=== PATIENT | female | born 1945 | race American Indian/Alaskan Native ===

== ENCOUNTER 2016-10-26 10:03 | Inpatient (IN) | payer MEDICARE ==
[2016-10-26 11:24] LABS: Basophils % (Auto) 0.5 % (0.0-1.8); Eosinophils % (Auto) 0.3 % (0.0-4.3); Hematocrit 36.7 % (30.3-42.9); Hemoglobin 11.5 gm/dl (10.1-14.3); Mean Corpuscular HGB Conc 31 % (30-34); Mean Corpuscular Hemoglobin 30 pg (28-32); Mean Corpuscular Volume 95 fl (79-97); Platelet Count 367 K/mm3 (140-440); Red Blood Count 3.85 M/mm3 (3.65-5.03); Red Cell Distribution Width 14.5 % (13.2-15.2); White Blood Count 9.3 K/mm3 (4.5-11.0)
[2016-10-26 11:32] LABS: Bacteria,Urine 4+ /HPF (Negative); Bilirubin,Urine SM (Negative); Blood,Urine SM (Negative); Ketones,Urine TR mg/dL (Negative); Leukocyte Esterase,Urine MOD (Negative); Mucus,Urine 3+ /HPF; Nitrite,Urine NEG (Negative)
[2016-10-26 11:33] LABS: INR 1.24 (0.87-1.13)
[2016-10-26 11:33] LABS: WBC,Urine > 182.0 /HPF (0.0-6.0)
[2016-10-26 11:39] LABS: Albumin 2.2 g/dL (3.9-5); Albumin/Globulin Ratio 0.3 %; Alkaline Phosphatase 64 units/L (35-129); Anion Gap 18 mmol/L; BUN/Creatinine Ratio 11.25; Blood Urea Nitrogen 9 mg/dL (7-17); Calcium 8.6 mg/dL (8.4-10.2); Carbon Dioxide 26 mmol/L (22-30); Chloride 94.1 mmol/L (98-107); Glucose 120 mg/dL (65-100); Potassium 3.6 mmol/L (3.6-5.0); Sodium 134 mmol/L (137-145); Total Protein 8.8 g/dL (6.3-8.2)
[2016-10-26 11:43] LABS: Alanine Aminotransferase < 5 units/L (7-56)
[2016-10-26] MEDS ORDERED: NACL 0.9% 500 ML 500 ML IV ONE (12:02)
[2016-10-26] MEDS ORDERED: ROCEPHIN/NS 1 GM/50 ML 1 GM/50 ML BAG IV ONE (14:39)
[2016-10-26] MEDS ORDERED: ZITHROMAX PO ONE (14:39)
--- NOTE | 2016-10-26 14:40 | Emergency Department Report ---
ED General Adult HPI - General Chief complaint: Weakness Stated complaint: LOW BLOOD PRESSURE Source: patient, family, EMS (ems notes not available at time of chart dictation), RN notes reviewed Mode of arrival: Stretcher Limitations: No Limitations - History of Present Illness Initial comments: This is a 71-year-old female. She is previously unknown to me. Her primary care doctor is Dr. Bang Robles. She reports a past medical history of hypertension and takes metoprolol. Patient is brought to the hospital by EMS. Her primary care doctor is Dr. Bang Robles. The patient presents today with a complaint of weakness, dizziness, lightheadedness, near syncope and hypotension. She reports her blood pressure was in the 80s in the field. She denies headache, neck pain, chest pain, abdominal pain, shortness of breath, irritated and obstructive urinary symptoms. She has no hematemesis or bright red blood per rectum. Her hypotension has resolved. -: Gradual Improves with: none Worsens with: none Associated Symptoms: loss of appetite, malaise, syncope, weakness. denies: confusion, chest pain - Related Data Home Medications Medication Instructions Recorded Confirmed Last Taken Metoprolol Xl [Metoprolol 12.5 mg PO BID 10/26/16 10/26/16 10/25/16 SUCCINATE ER TAB] Allergies Allergy/AdvReac Type Severity Reaction Status Date / Time No Known Allergies Allergy Verified 03/16/14 21:25 ED Review of Systems ROS: Stated complaint: LOW BLOOD PRESSURE Other details as noted in HPI Constitutional: malaise. denies: fever Eyes: denies: vision change ENT: denies: epistaxis Respiratory: denies: wheezing Cardiovascular: denies: chest pain Gastrointestinal: denies: abdominal pain Genitourinary: denies: dysuria Musculoskeletal: denies: back pain Skin: denies: lesions Neurological: weakness Psychiatric: denies: anxiety ED Past Medical Hx - Past Medical History Previous Medical History?: Yes Hx Hypertension: Yes (no meds) Hx Congestive Heart Failure: Yes - Surgical History Past Surgical History?: Yes Additional Surgical History: stomach surgery for weight loss in 1969 - Social History Smoking Status: Never Smoker Substance Use Type: None - Medications Home Medications: Home Medications Medication Instructions Recorded Confirmed Last Taken Type Metoprolol Xl [Metoprolol 12.5 mg PO BID 08/11/17 08/11/17 08/10/17 History SUCCINATE ER TAB] ED Physical Exam - General Limitations: No Limitations General appearance: alert, in no apparent distress - Head Head exam: Present: atraumatic, normocephalic - Eye Eye exam: Present: normal appearance, PERRL, EOMI. Absent: nystagmus - ENT ENT exam: Present: normal exam, normal orophraynx, mucous membranes moist, normal external ear exam - Neck Neck exam: Present: normal inspection, full ROM. Absent: tenderness, meningismus - Respiratory Respiratory exam: Present: normal lung sounds bilaterally, rhonchi. Absent: respiratory distress - Cardiovascular Cardiovascular Exam: Present: regular rate, normal rhythm, normal heart sounds. Absent: bradycardia, tachycardia, irregular rhythm, systolic murmur, diastolic murmur, rubs, gallop - GI/Abdominal GI/Abdominal exam: Present: soft, normal bowel sounds. Absent: distended, tenderness, guarding, rebound, rigid, pulsatile mass - Extremities Exam Extremities exam: Present: normal inspection, full ROM, normal capillary refill. Absent: tenderness, pedal edema, joint swelling, calf tenderness - Back Exam Back exam: Present: normal inspection, full ROM. Absent: tenderness, CVA tenderness (R), CVA tenderness (L), muscle spasm, paraspinal tenderness, vertebral tenderness - Neurological Exam Neurological exam: Present: alert, oriented X3, other (Extraocular movements intact. Tongue midline. No facial droop. Facial sensation intact to light touch in the V1, V2, V3 distribution bilaterally. 5 and 5 strength in 4 extremities.. Sensation is intact to light touch in 4 extremities.). Absent: motor sensory deficit - Psychiatric Psychiatric exam: Present: normal affect, normal mood - Skin Skin exam: Present: warm, dry, intact, normal color. Absent: rash ED Course Vital Signs 10/26/16 10/26/16 10/26/16 10:04 10:10 10:20 Temperature Pulse Rate 97 H 98 H 95 H Respiratory 15 27 H 17 Rate Blood Pressure 102/55 O2 Sat by Pulse 88 92 Oximetry 10/26/16 10/26/16 10/26/16 10:30 10:31 10:40 Temperature 99.1 F Pulse Rate 94 H 98 H 94 H Respiratory 18 12 12 Rate Blood Pressure 102/55 102/55 102/55 O2 Sat by Pulse 91 94 91 Oximetry 10/26/16 10/26/16 10/26/16 10:50 11:00 11:20 Temperature Pulse Rate 88 91 H 94 H Respiratory 12 11 L 24 Rate Blood Pressure 108/57 103/52 109/65 O2 Sat by Pulse 93 90 Oximetry 10/26/16 10/26/16 10/26/16 11:30 11:40 11:50 Temperature Pulse Rate 87 89 90 Respiratory 26 H 17 18 Rate Blood Pressure 100/53 100/53 107/72 O2 Sat by Pulse 91 89 90 Oximetry 10/26/16 10/26/16 10/26/16 12:00 12:06 12:10 Temperature Pulse Rate 94 H 92 H Respiratory 29 H 24 8 L Rate Blood Pressure 108/38 108/38 O2 Sat by Pulse 91 94 Oximetry 10/26/16 10/26/16 10/26/16 12:20 12:30 12:40 Temperature Pulse Rate 83 91 H 91 H Respiratory 14 26 H 25 H Rate Blood Pressure 105/56 111/58 111/58 O2 Sat by Pulse 93 91 91 Oximetry 10/26/16 10/26/16 10/26/16 12:50 13:00 13:10 Temperature Pulse Rate 91 H 91 H 87 Respiratory 24 21 30 H Rate Blood Pressure 115/56 102/62 102/62 O2 Sat by Pulse 92 92 Oximetry 10/26/16 10/26/16 10/26/16 13:20 13:30 13:40 Temperature Pulse Rate 84 83 85 Respiratory 25 H 19 24 Rate Blood Pressure 118/70 110/77 110/77 O2 Sat by Pulse 98 95 97 Oximetry 10/26/16 10/26/16 10/26/16 13:50 14:00 14:10 Temperature Pulse Rate 82 88 85 Respiratory 10 L 22 24 Rate Blood Pressure 110/72 104/54 104/54 O2 Sat by Pulse 98 95 97 Oximetry 10/26/16 10/26/16 10/26/16 14:20 14:30 14:40 Temperature Pulse Rate 83 84 80 Respiratory 22 21 12 Rate Blood Pressure 110/55 109/65 109/65 O2 Sat by Pulse 97 96 97 Oximetry 10/26/16 10/26/16 10/26/16 14:50 15:00 15:10 Temperature Pulse Rate 88 87 78 Respiratory 23 10 L 16 Rate Blood Pressure 103/61 111/64 111/64 O2 Sat by Pulse 98 96 95 Oximetry 0810/26/16 10/26/16 15:20 15:30 15:40 Temperature Pulse Rate 86 92 H 80 Respiratory 17 14 13 Rate Blood Pressure 119/63 117/54 117/54 O2 Sat by Pulse 96 95 97 Oximetry 10/26/16 10/26/16 10/26/16 15:50 16:00 16:10 Temperature Pulse Rate 84 75 79 Respiratory 12 17 12 Rate Blood Pressure 119/63 117/59 117/59 O2 Sat by Pulse 96 95 97 Oximetry 10/26/16 10/26/16 10/26/16 16:20 16:30 16:40 Temperature Pulse Rate 79 81 87 Respiratory 25 H 17 26 H Rate Blood Pressure 115/61 106/65 106/65 O2 Sat by Pulse 96 97 97 Oximetry 10/26/16 10/26/16 10/26/16 16:50 17:00 17:10 Temperature Pulse Rate 82 84 129 H Respiratory 25 H 23 26 H Rate Blood Pressure 109/59 108/61 108/61 O2 Sat by Pulse 98 97 Oximetry 10/26/16 10/26/16 10/26/16 17:20 17:30 17:40 Temperature Pulse Rate 90 90 89 Respiratory 14 24 26 H Rate Blood Pressure 102/57 108/57 108/57 O2 Sat by Pulse 97 97 Oximetry 10/26/16 10/26/16 10/26/16 17:50 18:00 18:10 Temperature Pulse Rate 78 76 78 Respiratory 24 19 26 H Rate Blood Pressure 110/60 95/56 95/56 O2 Sat by Pulse 98 96 97 Oximetry 10/26/16 10/26/16 10/26/16 18:20 18:30 18:40 Temperature Pulse Rate 70 87 86 Respiratory 21 25 H 25 H Rate Blood Pressure 112/61 116/64 105/62 O2 Sat by Pulse 97 96 Oximetry 10/26/16 10/26/16 10/26/16 18:50 19:00 19:10 Temperature Pulse Rate 86 85 77 Respiratory 13 30 H 20 Rate Blood Pressure 103/49 113/56 113/56 O2 Sat by Pulse 97 98 Oximetry 10/26/16 10/26/16 19:20 19:41 Temperature 98.3 F Pulse Rate 88 Respiratory 29 H 17 Rate Blood Pressure 107/55 O2 Sat by Pulse 98 Oximetry ED Medical Decision Making - Lab Data Result diagrams: 10/26/16 11:00 10/26/16 11:00 Vital Signs 10/26/16 10/26/16 10/26/16 10:04 10:10 10:20 Temperature Pulse Rate 97 H 98 H 95 H Respiratory 15 27 H 17 Rate Blood Pressure 102/55 O2 Sat by Pulse 88 92 Oximetry 10/26/16 10/26/16 10/26/16 10:30 10:31 10:40 Temperature 99.1 F Pulse Rate 94 H 98 H 94 H Respiratory 18 12 12 Rate Blood Pressure 102/55 102/55 102/55 O2 Sat by Pulse 91 94 91 Oximetry 10/26/16 10/26/16 10/26/16 10:50 11:00 11:20 Temperature Pulse Rate 88 91 H 94 H Respiratory 12 11 L 24 Rate Blood Pressure 108/57 103/52 109/65 O2 Sat by Pulse 93 90 Oximetry 10/26/16 10/26/16 10/26/16 11:30 11:40 11:50 Temperature Pulse Rate 87 89 90 Respiratory 26 H 17 18 Rate Blood Pressure 100/53 100/53 107/72 O2 Sat by Pulse 91 89 90 Oximetry 10/26/16 10/26/16 10/26/16 12:00 12:06 12:10 Temperature Pulse Rate 94 H 92 H Respiratory 29 H 24 8 L Rate Blood Pressure 108/38 108/38 O2 Sat by Pulse 91 94 Oximetry Lab Results 10/26/16 10/26/16 10/26/16 Range/Units 10:58 11:00 11:00 WBC 9.3 (4.5-11.0) K/mm3 RBC 3.85 (3.65-5.03) M/mm3 Hgb 11.5 (10.1-14.3) gm/dl Hct 36.7 (30.3-42.9) % MCV 95 (79-97) fl MCH 30 (28-32) pg MCHC 31 (30-34) % RDW 14.5 (13.2-15.2) % Plt Count 367 (140-440) K/mm3 Lymph % (Auto) 12.8 L (13.4-35.0) % Craig % (Auto) 10.4 H (0.0-7.3) % Eos % (Auto) 0.3 (0.0-4.3) % Baso % (Auto) 0.5 (0.0-1.8) % Lymph # 1.2 (1.2-5.4) K/mm3 Craig # 1.0 H (0.0-0.8) K/mm3 Eos # 0.0 (0.0-0.4) K/mm3 Baso # 0.0 (0.0-0.1) K/mm3 Seg Neutrophils % 76.0 H (40.0-70.0) % Seg Neutrophils # 7.1 (1.8-7.7) K/mm3 PT 15.5 H (12.2-14.9) Sec. INR 1.24 H (0.87-1.13) VBG pH (7.320-7.420) Sodium (137-145) mmol/L Potassium (3.6-5.0) mmol/L Chloride (98-107) mmol/L Carbon Dioxide (22-30) mmol/L Anion Gap mmol/L BUN (7-17) mg/dL Creatinine (0.7-1.2) mg/dL Estimated GFR ml/min BUN/Creatinine Ratio % Glucose (65-100) mg/dL Lactic Acid (0.7-2.0) mmol/L Calcium (8.4-10.2) mg/dL Total Bilirubin (0.1-1.2) mg/dL AST (5-40) units/L ALT (7-56) units/L Alkaline Phosphatase (35-129) units/L Total Protein (6.3-8.2) g/dL Albumin (3.9-5) g/dL Albumin/Globulin Ratio % Urine Color Mad[place] (Yellow) Urine Turbidity Cloudy (Clear) Urine pH 5.0 (5.0-7.0) Ur Specific Gilbert 1.021 (1.003-1.030) Urine Protein 100 mg/dl (Negative) mg/dL Urine Glucose (UA) Neg (Negative) mg/dL Urine Ketones Tr (Negative) mg/dL Urine Blood Sm (Negative) Urine Nitrite Neg (Negative) Urine Bilirubin Sm (Negative) Urine Ictotest Negative (Negative) Urine Urobilinogen 4.0 (<2.0) mg/dL Ur Leukocyte Esterase Mod (Negative) Urine WBC (Auto) > 182.0 H (0.0-6.0) /HPF Urine RBC (Auto) 15.0 (0.0-6.0) /HPF U Epithel Cells (Auto) 9.0 (0-13.0) /HPF Urine Bacteria (Auto) 4+ (Negative) /HPF Urine WBC Clumps 3+ /HPF Urine Mucus 3+ /HPF 10/26/16 10/26/16 10/26/16 Range/Units 11:00 11:00 11:00 WBC (4.5-11.0) K/mm3 RBC (3.65-5.03) M/mm3 Hgb (10.1-14.3) gm/dl Hct (30.3-42.9) % MCV (79-97) fl MCH (28-32) pg MCHC (30-34) % RDW (13.2-15.2) % Plt Count (140-440) K/mm3 Lymph % (Auto) (13.4-35.0) % Craig % (Auto) (0.0-7.3) % Eos % (Auto) (0.0-4.3) % Baso % (Auto) (0.0-1.8) % Lymph # (1.2-5.4) K/mm3 Craig # (0.0-0.8) K/mm3 Eos # (0.0-0.4) K/mm3 Baso # (0.0-0.1) K/mm3 Seg Neutrophils % (40.0-70.0) % Seg Neutrophils # (1.8-7.7) K/mm3 PT (12.2-14.9) Sec. INR (0.87-1.13) VBG pH 7.331 (7.320-7.420) Sodium 134 L (137-145) mmol/L Potassium 3.6 (3.6-5.0) mmol/L Chloride 94.1 L (98-107) mmol/L Carbon Dioxide 26 (22-30) mmol/L Anion Gap 18 mmol/L BUN 9 (7-17) mg/dL Creatinine 0.8 (0.7-1.2) mg/dL Estimated GFR > 60 ml/min BUN/Creatinine Ratio 11.25 % Glucose 120 H (65-100) mg/dL Lactic Acid 2.20 H* (0.7-2.0) mmol/L Calcium 8.6 (8.4-10.2) mg/dL Total Bilirubin 0.90 (0.1-1.2) mg/dL AST 18 (5-40) units/L ALT < 5 L (7-56) units/L Alkaline Phosphatase 64 (35-129) units/L Total Protein 8.8 H (6.3-8.2) g/dL Albumin 2.2 L (3.9-5) g/dL Albumin/Globulin Ratio 0.3 % Urine Color (Yellow) Urine Turbidity (Clear) Urine pH (5.0-7.0) Ur Specific Gilbert (1.003-1.030) Urine Protein (Negative) mg/dL Urine Glucose (UA) (Negative) mg/dL Urine Ketones (Negative) mg/dL Urine Blood (Negative) Urine Nitrite (Negative) Urine Bilirubin (Negative) Urine Ictotest (Negative) Urine Urobilinogen (<2.0) mg/dL Ur Leukocyte Esterase (Negative) Urine WBC (Auto) (0.0-6.0) /HPF Urine RBC (Auto) (0.0-6.0) /HPF U Epithel Cells (Auto) (0-13.0) /HPF Urine Bacteria (Auto) (Negative) /HPF Urine WBC Clumps /HPF Urine Mucus /HPF 10/26/16 Range/Units 13:37 WBC (4.5-11.0) K/mm3 RBC (3.65-5.03) M/mm3 Hgb (10.1-14.3) gm/dl Hct (30.3-42.9) % MCV (79-97) fl MCH (28-32) pg MCHC (30-34) % RDW (13.2-15.2) % Plt Count (140-440) K/mm3 Lymph % (Auto) (13.4-35.0) % Craig % (Auto) (0.0-7.3) % Eos % (Auto) (0.0-4.3) % Baso % (Auto) (0.0-1.8) % Lymph # (1.2-5.4) K/mm3 Craig # (0.0-0.8) K/mm3 Eos # (0.0-0.4) K/mm3 Baso # (0.0-0.1) K/mm3 Seg Neutrophils % (40.0-70.0) % Seg Neutrophils # (1.8-7.7) K/mm3 PT (12.2-14.9) Sec. INR (0.87-1.13) VBG pH (7.320-7.420) Sodium (137-145) mmol/L Potassium (3.6-5.0) mmol/L Chloride (98-107) mmol/L Carbon Dioxide (22-30) mmol/L Anion Gap mmol/L BUN (7-17) mg/dL Creatinine (0.7-1.2) mg/dL Estimated GFR ml/min BUN/Creatinine Ratio % Glucose (65-100) mg/dL Lactic Acid 1.00 (0.7-2.0) mmol/L Calcium (8.4-10.2) mg/dL Total Bilirubin (0.1-1.2) mg/dL AST (5-40) units/L ALT (7-56) units/L Alkaline Phosphatase (35-129) units/L Total Protein (6.3-8.2) g/dL Albumin (3.9-5) g/dL Albumin/Globulin Ratio % Urine Color (Yellow) Urine Turbidity (Clear) Urine pH (5.0-7.0) Ur Specific Gilbert (1.003-1.030) Urine Protein (Negative) mg/dL Urine Glucose (UA) (Negative) mg/dL Urine Ketones (Negative) mg/dL Urine Blood (Negative) Urine Nitrite (Negative) Urine Bilirubin (Negative) Urine Ictotest (Negative) Urine Urobilinogen (<2.0) mg/dL Ur Leukocyte Esterase (Negative) Urine WBC (Auto) (0.0-6.0) /HPF Urine RBC (Auto) (0.0-6.0) /HPF U Epithel Cells (Auto) (0-13.0) /HPF Urine Bacteria (Auto) (Negative) /HPF Urine WBC Clumps /HPF Urine Mucus /HPF - EKG Data -: EKG Interpreted by Me - EKG Data 10/26/16 16:27 10/26/16 16:28 normal sinus, 93 beats minute, normal axis, QTC 460 ms, abnormal EKG, not morphologically consistent with STEMI - Radiology Data Radiology results: report reviewed, image reviewed interpreted by me: x-ray of the chest demonstrates right upper lobe infiltrate versus mass. Otherwise, no acute disease. No pneumothorax. - Medical Decision Making Differential diagnosis: Pneumonia, urinary tract infection, orthostasis, anemia , dehydration Assessment and plan: 71-year-old female with resolved hypotension, generalized weakness, bowel urinary tract infection. X-ray of the chest suggest pneumonia versus nonspecific masses. Currently, the CT angiogram machine is not working. However, given UTI, symptoms of hypotension, dizziness and near syncope, patient to be admitted to the hospital for IV antibiotics, IV fluids, further observation, evaluation and management. Case is presents to the Hospital physician, Dr. García, who accepts the patient to his service. Patient is given IV fluids, empiric antibiotics, blood cultures drawn. Critical care attestation.: If time is entered above; I have spent that time in minutes in the direct care of this critically ill patient, excluding procedure time. ED Disposition Clinical Impression: History of hypotension, UTI (urinary tract infection), Near syncope Disposition: OP ADMIT IP TO THIS HOSP Is pt being admited?: Yes Condition: Good
--- NOTE | 2016-10-26 15:30 | XRay Report ---
Portable chest: Fever, respiratory difficulty. There is an infiltrate/mass in the right upper lobe and there is widening of the mediastinum in the right paratracheal region. The hilum is obscured. The lower right lung is clear in the left lung is clear. The heart is normal in size and is no vascular congestion. Impression: Right hilar opacity that is more likely to represent masses and infiltrate. Recommendation: CT chest.
[2016-10-26] MEDS ORDERED: ZOFRAN IV PRN (18:51)
[2016-10-26] MEDS ORDERED: MILK OF MAGNESIA PO PRN (18:51)
[2016-10-26] MEDS ORDERED: DULCOLAX PR PRN (18:51)
--- NOTE | 2016-10-26 18:51 | History and Physical Report ---
History of Present Illness Date of examination: 10/26/16 Date of admission: 10/26/16 Chief complaint: History of Present Illness This is a 71-year-old female who reports a past medical history of hypertension and takes metoprolol presents today with a complaint of weakness, dizziness, lightheadedness, near syncope and hypotension. She reports her blood pressure was in the 80s in the field. She denies headache, neck pain, chest pain, abdominal pain, shortness of breath, irritated and obstructive urinary symptoms. She has no hematemesis or bright red blood per rectum. Her hypotension has resolved. -: Gradual Improves with: none Worsens with: none Associated Symptoms: loss of appetite, malaise, syncope, weakness. denies: confusion, chest - Past Medical History Previous Medical History?: Yes Hx Hypertension: Yes (no meds) Hx Congestive Heart Failure: Yes - Surgical History Past Surgical History?: Yes Additional Surgical History: stomach surgery for weight loss in 1969 - Social History Smoking Status: Never Smoker Substance Use Type: None Fam Hx Htn - Medications Home Medications: Home Medications Medication Instructions Recorded Confirmed Last Taken Type Metoprolol Xl [Metoprolol 12.5 mg PO BID 10/26/16 10/26/16 10/25/16 History SUCCINATE ER TAB] - Related Data Home Medications Medication Instructions Recorded Confirmed Last Taken Metoprolol Xl [Metoprolol 12.5 mg PO BID 10/26/16 10/26/16 10/25/16 SUCCINATE ER TAB] Allergies Allergy/AdvReac Type Severity Reaction Status Date / Time No Known Allergies Allergy Verified 03/16/14 21:25 ROS: Stated complaint: LOW BLOOD PRESSURE Other details as noted in HPI Constitutional: malaise. denies: fever Eyes: denies: vision change ENT: denies: epistaxis Respiratory: denies: wheezing Cardiovascular: denies: chest pain Gastrointestinal: denies: abdominal pain Genitourinary: denies: dysuria Musculoskeletal: denies: back pain Skin: denies: lesions Neurological: weakness Psychiatric: denies: anxiety History of present illness: - History of Present Illness Initial comments: This is a 71-year-old female. She is previously unknown to me. Her primary care doctor is Dr. Bang Robles. She reports a past medical history of hypertension and takes metoprolol. Patient is brought to the hospital by EMS. Her primary care doctor is Dr. Bang Robles. The patient presents today with a complaint of - History of Present Illness Initial comments: This is a 71-year-old female. She is previously unknown to me. Her primary care doctor is Dr. Bang Robles. She reports a past medical history of hypertension and takes metoprolol. Patient is brought to the hospital by EMS. Her primary care doctor is Dr. Bang Robles. The patient presents today with a complaint of weakness, dizziness, lightheadedness, near syncope and hypotension. She reports her blood pressure was in the 80s in the field. She denies headache, neck pain, chest pain, abdominal pain, shortness of breath, irritated and obstructive urinary symptoms. She has no hematemesis or bright red blood per rectum. Her hypotension has resolved. -: Gradual Improves with: none Worsens with: none Associated Symptoms: loss of appetite, malaise, syncope, weakness. denies: confusion, chest pain - Related Data Home Medications Medication Instructions Recorded Confirmed Last Taken Metoprolol Xl [Metoprolol 12.5 mg PO BID 10/26/16 10/26/16 10/25/16 SUCCINATE ER TAB] Allergies Allergy/AdvReac Type Severity Reaction Status Date / Time No Known Allergies Allergy Verified 03/16/14 21:25 ED Review of Systems ROS: Stated complaint: LOW BLOOD PRESSURE Other details as noted in HPI Constitutional: malaise. denies: fever Eyes: denies: vision change ENT: denies: epistaxis Respiratory: denies: wheezing Cardiovascular: denies: chest pain Gastrointestinal: denies: abdominal pain Genitourinary: denies: dysuria Musculoskeletal: denies: back pain Skin: denies: lesions Neurological: weakness Psychiatric: denies: anxiety ED Past Medical Hx - Past Medical History Previous Medical History?: Yes Hx Hypertension: Yes (no meds) Hx Congestive Heart Failure: Yes - Surgical History Past Surgical History?: Yes Additional Surgical History: stomach surgery for weight loss in 1969 - Social History Smoking Status: Never Smoker Substance Use Type: None - Medications Home Medications: Home Medications Medication Instructions Recorded Confirmed Last Taken Type Metoprolol Xl [Metoprolol 12.5 mg PO BID 10/26/16 10/26/16 10/25/16 History SUCCINATE ER TAB] abdominal pain, shortness of breath, irritated and obstructive urinary symptoms. She has no hematemesis or bright red blood per rectum. Her hypotension has resolved. -: Gradual Improves with: none Worsens with: none Associated Symptoms: loss of appetite, malaise, syncope, weakness. denies: confusion, chest pain - Related Data Home Medications Medication Instructions Recorded Confirmed Last Taken Metoprolol Xl [Metoprolol 12.5 mg PO BID 10/26/16 10/26/16 10/25/16 SUCCINATE ER TAB] Allergies Allergy/AdvReac Type Severity Reaction Status Date / Time No Known Allergies Allergy Verified 03/16/14 21:25 ED Review of Systems ROS: Stated complaint: LOW BLOOD PRESSURE Other details as noted in HPI Constitutional: malaise. denies: fever Eyes: denies: vision change ENT: denies: epistaxis Respiratory: denies: wheezing Cardiovascular: denies: chest pain Gastrointestinal: denies: abdominal pain Genitourinary: denies: dysuria Musculoskeletal: denies: back pain Skin: denies: lesions Neurological: weakness Psychiatric: denies: anxiety ED Past Medical Hx - Past Medical History Previous Medical History?: Yes Hx Hypertension: Yes (no meds) Hx Congestive Heart Failure: Yes - Surgical History Past Surgical History?: Yes Additional Surgical History: stomach surgery for weight loss in 1969 - Social History Smoking Status: Never Smoker Substance Use Type: None - Medications Home Medications: Home Medications Medication Instructions Recorded Confirmed Last Taken Type Metoprolol Xl [Metoprolol 12.5 mg PO BID 10/26/16 10/26/16 10/25/16 History SUCCINATE ER TAB] Medications and Allergies Allergies Allergy/AdvReac Type Severity Reaction Status Date / Time No Known Allergies Allergy Verified 03/16/14 21:25 Home Medications Medication Instructions Recorded Confirmed Last Taken Type Metoprolol Xl [Metoprolol 12.5 mg PO BID 10/26/16 10/26/16 10/25/16 History SUCCINATE ER TAB] Exam - Physical Exam Narrative exam: In no distress - Constitutional Vitals: Temp Pulse Resp BP Pulse Ox 99.1 F 87 25 H 116/64 97 10/26/16 10:31 10/26/16 18:30 10/26/16 18:30 10/26/16 18:30 10/26/16 18:20 General appearance: Present: no acute distress, well-nourished - EENT Eyes: Present: PERRL ENT: hearing intact, clear oral mucosa - Neck Neck: Present: supple, normal ROM - Respiratory Respiratory effort: normal Respiratory: bilateral: CTA - Cardiovascular Heart rate: 76 Rhythm: regular Heart Sounds: Present: S1 & S2. Absent: rub, click - Extremities Extremities: no ischemia, pulses intact, pulses symmetrical, No edema Peripheral Pulses: within normal limits - Abdominal General gastrointestinal: Present: soft, non-tender, non-distended, normal bowel sounds Female genitourinary: Present: normal - Rectal Rectal Exam: deferred - Integumentary Integumentary: Present: clear, warm, dry - Musculoskeletal Musculoskeletal: gait normal, strength equal bilaterally - Psychiatric Psychiatric: appropriate mood/affect, intact judgment & insight - Neurologic Neurologic: CNII-XII intact, moves all extremities - Allied Health Allied health notes reviewed: nursing, case management Results - Labs CBC & Chem 7: 10/27/16 04:33 10/27/16 04:33 Labs: Laboratory Last Values WBC 9.3 K/mm3 (4.5-11.0) 10/26/16 11:00 RBC 3.85 M/mm3 (3.65-5.03) 10/26/16 11:00 Hgb 11.5 gm/dl (10.1-14.3) 10/26/16 11:00 Hct 36.7 % (30.3-42.9) 10/26/16 11:00 MCV 95 fl (79-97) 10/26/16 11:00 MCH 30 pg (28-32) 10/26/16 11:00 MCHC 31 % (30-34) 10/26/16 11:00 RDW 14.5 % (13.2-15.2) 10/26/16 11:00 Plt Count 367 K/mm3 (140-440) 10/26/16 11:00 Lymph % (Auto) 12.8 % (13.4-35.0) L 10/26/16 11:00 [place] % (Auto) 10.4 % (0.0-7.3) H 10/26/16 11:00 Eos % (Auto) 0.3 % (0.0-4.3) 10/26/16 11:00 Baso % (Auto) 0.5 % (0.0-1.8) 10/26/16 11:00 Lymph # 1.2 K/mm3 (1.2-5.4) 10/26/16 11:00 [place] # 1.0 K/mm3 (0.0-0.8) H 10/26/16 11:00 Eos # 0.0 K/mm3 (0.0-0.4) 10/26/16 11:00 Baso # 0.0 K/mm3 (0.0-0.1) 10/26/16 11:00 Seg Neutrophils % 76.0 % (40.0-70.0) H 10/26/16 11:00 Seg Neutrophils # 7.1 K/mm3 (1.8-7.7) 10/26/16 11:00 PT 15.5 Sec. (12.2-14.9) H 10/26/16 11:00 INR 1.24 (0.87-1.13) H 10/26/16 11:00 VBG pH 7.331 (7.320-7.420) 10/26/16 11:00 Sodium 134 mmol/L (137-145) L 10/26/16 11:00 Potassium 3.6 mmol/L (3.6-5.0) 10/26/16 11:00 Chloride 94.1 mmol/L (98-107) L 10/26/16 11:00 Carbon Dioxide 26 mmol/L (22-30) 10/26/16 11:00 Anion Gap 18 mmol/L 10/26/16 11:00 BUN 9 mg/dL (7-17) 10/26/16 11:00 Creatinine 0.8 mg/dL (0.7-1.2) 10/26/16 11:00 Estimated GFR > 60 ml/min 10/26/16 11:00 BUN/Creatinine Ratio 11.25 % 10/26/16 11:00 Glucose 120 mg/dL (65-100) H 10/26/16 11:00 Lactic Acid 1.00 mmol/L (0.7-2.0) 10/26/16 13:37 Calcium 8.6 mg/dL (8.4-10.2) 10/26/16 11:00 Total Bilirubin 0.90 mg/dL (0.1-1.2) 10/26/16 11:00 AST 18 units/L (5-40) 10/26/16 11:00 ALT < 5 units/L (7-56) L 10/26/16 11:00 Alkaline Phosphatase 64 units/L (35-129) 10/26/16 11:00 Total Protein 8.8 g/dL (6.3-8.2) H 10/26/16 11:00 Albumin 2.2 g/dL (3.9-5) L 10/26/16 11:00 Albumin/Globulin Ratio 0.3 % 10/26/16 11:00 Urine Color [place] (Yellow) 10/26/16 10:58 Urine Turbidity Cloudy (Clear) 10/26/16 10:58 Urine pH 5.0 (5.0-7.0) 10/26/16 10:58 Ur Specific [place] 1.021 (1.003-1.030) 10/26/16 10:58 Urine Protein 100 mg/dl mg/dL (Negative) 10/26/16 10:58 Urine Glucose (UA) Neg mg/dL (Negative) 10/26/16 10:58 Urine Ketones Tr mg/dL (Negative) 10/26/16 10:58 Urine Blood Sm (Negative) 10/26/16 10:58 Urine Nitrite Neg (Negative) 10/26/16 10:58 Urine Bilirubin Sm (Negative) 10/26/16 10:58 Urine Ictotest Negative (Negative) 10/26/16 10:58 Urine Urobilinogen 4.0 mg/dL (<2.0) 10/26/16 10:58 Ur Leukocyte Esterase Mod (Negative) 10/26/16 10:58 Urine WBC (Auto) > 182.0 /HPF (0.0-6.0) H 10/26/16 10:58 Urine RBC (Auto) 15.0 /HPF (0.0-6.0) 10/26/16 10:58 U Epithel Cells (Auto) 9.0 /HPF (0-13.0) 10/26/16 10:58 Urine Bacteria (Auto) 4+ /HPF (Negative) 10/26/16 10:58 Urine WBC Clumps 3+ /HPF 10/26/16 10:58 Urine Mucus 3+ /HPF 10/26/16 10:58 - Imaging and Cardiology EKG: report reviewed Chest x-ray: report reviewed (Rt Hilar opacity-CT chest to r/o mass) Assessment and Plan Advance Directives: Yes (FC) Plan of care discussed with patient/family: Yes - Patient Problems (1) Pneumonia Current Visit: Yes Status: Acute Qualifiers: Pneumonia type: due to unspecified organism Aspiration pneumonia type: A Laterality: L Lung location: middle lobe of lung Qualified Code(s): J18.1 - Lobar pneumonia, unspecified organism Plan to address problem: IV Rocephin and Zithromax CT chest ordered to r/o Rt Hilar mass (2) Hypotension Current Visit: Yes Status: Acute Qualifiers: Hypotension type: unspecified hypotension type Trimester: T Qualified Code(s): I95.9 - Hypotension, unspecified Plan to address problem: Resolved IV fluids (3) HTN (hypertension) Current Visit: Yes Status: Acute Qualifiers: Hypertension type: H (4) HTN (hypertension) Current Visit: Yes Status: Chronic Qualifiers: Hypertension type: essential hypertension Qualified Code(s): I10 - Essential (primary) hypertension Plan to address problem: Hold metoprolol for now (5) UTI (urinary tract infection) Current Visit: Yes Status: Acute Qualifiers: Urinary tract infection type: acute cystitis Hematuria presence: without hematuria Indwelling urinary catheter type: I Encounter type: E Qualified Code(s): N30.00 - Acute cystitis without hematuria Plan to address problem: Patient on Rocephin for PNA which should cover the UTI.Check cultures for sensitivity (6) DVT prophylaxis Current Visit: Yes Status: Acute Plan to address problem: On Lovenox
[2016-10-26] MEDS ORDERED: PERCOCET 5/325 PO PRN (18:52)
[2016-10-26] MEDS ORDERED: DILAUDID IV PRN (18:52)
[2016-10-26] MEDS ORDERED: D5NS 1,000 ML IV SCH (19:00)
[2016-10-26] MEDS ORDERED: PEPCID IV SCH (22:00)
[2016-10-26] MEDS: LOVENOX SUB-Q SCH (23:00)
[2016-10-26] MEDS: TOPROL XL PO SCH (23:00)
[2016-10-27] MEDS: TYLENOL PO PRN (03:23)
[2016-10-27 05:52] LABS: Basophils % (Auto) 0.4 % (0.0-1.8); Eosinophils % (Auto) 0.6 % (0.0-4.3); Hematocrit 30.5 % (30.3-42.9); Hemoglobin 10.3 gm/dl (10.1-14.3); Mean Corpuscular HGB Conc 34 % (30-34); Mean Corpuscular Hemoglobin 31 pg (28-32); Mean Corpuscular Volume 92 fl (79-97); Platelet Count 334 K/mm3 (140-440); Red Blood Count 3.32 M/mm3 (3.65-5.03); Red Cell Distribution Width 14.5 % (13.2-15.2)
[2016-10-27 06:12] LABS: Albumin 2.2 g/dL (3.9-5); Alkaline Phosphatase 53 units/L (35-129); Potassium 3.3 mmol/L (3.6-5.0); Sodium 139 mmol/L (137-145)
[2016-10-27 06:15] LABS: Alanine Aminotransferase < 5 units/L (7-56)
[2016-10-27 06:26] LABS: Albumin/Globulin Ratio 0.4 %; Anion Gap 14 mmol/L; BUN/Creatinine Ratio 14.28; Blood Urea Nitrogen 10 mg/dL (7-17); Calcium 8.1 mg/dL (8.4-10.2); Carbon Dioxide 29 mmol/L (22-30); Glucose 106 mg/dL (65-100); Total Protein 7.8 g/dL (6.3-8.2)
--- NOTE | 2016-10-27 10:11 | Progress Note ---
Assessment and Plan Assessment and plan: --Hypokalemia Replenish per protocol and monitor levels --Community-acquired pneumonia, oxygen titrated to O2 sats more than 90% Rocephin and Zithromax, follow cultures --Urinary tract infection on UA Continue Rocephin, follow urine cultures, IV fluids --Hypertension; well controlled Continue current antihypertensives and when necessary medications --Moderate to severe protein calorie malnutrition; nutrition supplements, supportive care --Full CODE STATUS --DVT prophylaxis Lovenox We'll closely monitor the patient and adjust management as needed -- History Interval history: Patient seen and evaluated medical records reviewed No new events reported by nursing staff Anatomy: Oriented 3 not in acute distress Hospitalist Physical - Constitutional Vitals: Temp Pulse Resp BP Pulse Ox 98.3 F 75 18 109/56 98 10/26/16 19:41 10/26/16 23:00 10/26/16 22:45 10/26/16 23:00 10/26/16 20:20 General appearance: Present: no acute distress, well-nourished - EENT Eyes: Present: PERRL, EOM intact - Neck Neck: Present: supple, normal ROM - Respiratory Respiratory effort: normal Respiratory: bilateral: diminished, negative: rales, rhonchi, wheezing - Cardiovascular Rhythm: regular Heart Sounds: Present: S1 & S2 - Extremities Extremities: no ischemia, No edema - Abdominal General gastrointestinal: soft, non-tender, non-distended, normal bowel sounds - Integumentary Integumentary: Present: clear, warm - Psychiatric Psychiatric: appropriate mood/affect, cooperative - Neurologic Neurologic: CNII-XII intact Results - Labs CBC & Chem 7: 10/27/16 04:33 10/27/16 04:33 Labs: Laboratory Last Values WBC 8.0 K/mm3 (4.5-11.0) 10/27/16 04:33 RBC 3.32 M/mm3 (3.65-5.03) L 10/27/16 04:33 Hgb 10.3 gm/dl (10.1-14.3) 10/27/16 04:33 Hct 30.5 % (30.3-42.9) D 10/27/16 04:33 MCV 92 fl (79-97) 10/27/16 04:33 MCH 31 pg (28-32) 10/27/16 04:33 MCHC 34 % (30-34) 10/27/16 04:33 RDW 14.5 % (13.2-15.2) 10/27/16 04:33 Plt Count 334 K/mm3 (140-440) 10/27/16 04:33 Lymph % (Auto) 19.3 % (13.4-35.0) 10/27/16 04:33 [place] % (Auto) 12.4 % (0.0-7.3) H 10/27/16 04:33 Eos % (Auto) 0.6 % (0.0-4.3) 10/27/16 04:33 Baso % (Auto) 0.4 % (0.0-1.8) 10/27/16 04:33 Lymph # 1.5 K/mm3 (1.2-5.4) 10/27/16 04:33 [place] # 1.0 K/mm3 (0.0-0.8) H 10/27/16 04:33 Eos # 0.0 K/mm3 (0.0-0.4) 10/27/16 04:33 Baso # 0.0 K/mm3 (0.0-0.1) 10/27/16 04:33 Seg Neutrophils % 67.3 % (40.0-70.0) 10/27/16 04:33 Seg Neutrophils # 5.4 K/mm3 (1.8-7.7) 10/27/16 04:33 PT 15.5 Sec. (12.2-14.9) H 10/26/16 11:00 INR 1.24 (0.87-1.13) H 10/26/16 11:00 VBG pH 7.331 (7.320-7.420) 10/26/16 11:00 Sodium 139 mmol/L (137-145) 10/27/16 04:33 Potassium 3.3 mmol/L (3.6-5.0) L 10/27/16 04:33 Chloride 99.0 mmol/L (98-107) 10/27/16 04:33 Carbon Dioxide 29 mmol/L (22-30) 10/27/16 04:33 Anion Gap 14 mmol/L 10/27/16 04:33 BUN 10 mg/dL (7-17) 10/27/16 04:33 Creatinine 0.7 mg/dL (0.7-1.2) 10/27/16 04:33 Estimated GFR > 60 ml/min 10/27/16 04:33 BUN/Creatinine Ratio 14.28 % 10/27/16 04:33 Glucose 106 mg/dL (65-100) H 10/27/16 04:33 Lactic Acid 1.00 mmol/L (0.7-2.0) 10/26/16 13:37 Calcium 8.1 mg/dL (8.4-10.2) L 10/27/16 04:33 Total Bilirubin 0.70 mg/dL (0.1-1.2) 10/27/16 04:33 AST 15 units/L (5-40) 10/27/16 04:33 ALT < 5 units/L (7-56) L 10/27/16 04:33 Alkaline Phosphatase 53 units/L (35-129) 10/27/16 04:33 Total Protein 7.8 g/dL (6.3-8.2) 10/27/16 04:33 Albumin 2.2 g/dL (3.9-5) L 10/27/16 04:33 Albumin/Globulin Ratio 0.4 % 10/27/16 04:33 Urine Color [place] (Yellow) 10/26/16 10:58 Urine Turbidity Cloudy (Clear) 10/26/16 10:58 Urine pH 5.0 (5.0-7.0) 10/26/16 10:58 Ur Specific [place] 1.021 (1.003-1.030) 10/26/16 10:58 Urine Protein 100 mg/dl mg/dL (Negative) 10/26/16 10:58 Urine Glucose (UA) Neg mg/dL (Negative) 10/26/16 10:58 Urine Ketones Tr mg/dL (Negative) 10/26/16 10:58 Urine Blood Sm (Negative) 10/26/16 10:58 Urine Nitrite Neg (Negative) 10/26/16 10:58 Urine Bilirubin Sm (Negative) 10/26/16 10:58 Urine Ictotest Negative (Negative) 10/26/16 10:58 Urine Urobilinogen 4.0 mg/dL (<2.0) 10/26/16 10:58 Ur Leukocyte Esterase Mod (Negative) 10/26/16 10:58 Urine WBC (Auto) > 182.0 /HPF (0.0-6.0) H 10/26/16 10:58 Urine RBC (Auto) 15.0 /HPF (0.0-6.0) 10/26/16 10:58 U Epithel Cells (Auto) 9.0 /HPF (0-13.0) 10/26/16 10:58 Urine Bacteria (Auto) 4+ /HPF (Negative) 10/26/16 10:58 Urine WBC Clumps 3+ /HPF 10/26/16 10:58 Urine Mucus 3+ /HPF 10/26/16 10:58
[2016-10-27] MEDS ORDERED: K-DUR PO ONE (11:00)
[2016-10-27] MEDS: TOPROL XL PO SCH ×2 (11:23→11:31)
[2016-10-27] MEDS: PEPCID PO SCH ×2 (11:58→22:56)
[2016-10-27] MEDS ORDERED: ZITHROMAX 500 MG in NACL 0.9% 250ML 250 ML IV SCH (16:00)
[2016-10-27] MEDS: ROCEPHIN/NS 2 GM/100 ML 2 GM/100 ML BAG IV SCH (18:10)
[2016-10-27] MEDS: LOVENOX SUB-Q SCH (22:37)
--- NOTE | 2016-10-28 09:49 | Progress Note ---
Assessment and Plan Assessment and plan: --Gram-negative urinary tract infection Continue current antibiotics, follow culture sensitivities and adjust. Supportive care with IV fluids --Hypokalemia; replace per protocol ,closely monitor electrolytes --Community-acquired pneumonia, oxygen titrate O2 sats more than 90% Rocephin and Zithromax, follow cultures --Hypertension; well controlled Continue current antihypertensives and when necessary medications --Moderate to severe protein calorie malnutrition; nutrition supplements, supportive care --Full CODE STATUS --DVT prophylaxis Lovenox Out of bed to chair, ambulate as tolerated Possible discharge tomorrow if sensitivities are available and if patient is stable -- History Interval history: Patient seen and evaluated medical records reviewed Patient feels slightly better and wants to go home Alert awake and oriented 3 not in acute distress Vital signs reviewed Urine cultures are positive for gram-negative rods Hospitalist Physical - Constitutional Vitals: Temp Pulse Resp BP Pulse Ox 98.8 F 76 20 118/62 96 10/27/16 23:47 10/27/16 23:47 10/27/16 23:47 10/27/16 23:47 10/27/16 23:47 General appearance: Present: no acute distress, well-nourished - EENT Eyes: Present: PERRL, EOM intact - Neck Neck: Present: supple, normal ROM - Respiratory Respiratory effort: normal Respiratory: bilateral: diminished, negative: rales, rhonchi, wheezing - Cardiovascular Rhythm: regular Heart Sounds: Present: S1 & S2 - Extremities Extremities: no ischemia, No edema Peripheral Pulses: within normal limits - Abdominal General gastrointestinal: soft, non-tender, non-distended, normal bowel sounds - Integumentary Integumentary: Present: clear, warm - Psychiatric Psychiatric: appropriate mood/affect, cooperative - Neurologic Neurologic: CNII-XII intact, moves all extremities Results - Labs CBC & Chem 7: 10/27/16 04:33 10/27/16 04:33 Labs: Laboratory Last Values WBC 8.0 K/mm3 (4.5-11.0) 10/27/16 04:33 RBC 3.32 M/mm3 (3.65-5.03) L 10/27/16 04:33 Hgb 10.3 gm/dl (10.1-14.3) 10/27/16 04:33 Hct 30.5 % (30.3-42.9) D 10/27/16 04:33 MCV 92 fl (79-97) 10/27/16 04:33 MCH 31 pg (28-32) 10/27/16 04:33 MCHC 34 % (30-34) 10/27/16 04:33 RDW 14.5 % (13.2-15.2) 10/27/16 04:33 Plt Count 334 K/mm3 (140-440) 10/27/16 04:33 Lymph % (Auto) 19.3 % (13.4-35.0) 10/27/16 04:33 [place] % (Auto) 12.4 % (0.0-7.3) H 10/27/16 04:33 Eos % (Auto) 0.6 % (0.0-4.3) 10/27/16 04:33 Baso % (Auto) 0.4 % (0.0-1.8) 10/27/16 04:33 Lymph # 1.5 K/mm3 (1.2-5.4) 10/27/16 04:33 [place] # 1.0 K/mm3 (0.0-0.8) H 10/27/16 04:33 Eos # 0.0 K/mm3 (0.0-0.4) 10/27/16 04:33 Baso # 0.0 K/mm3 (0.0-0.1) 10/27/16 04:33 Seg Neutrophils % 67.3 % (40.0-70.0) 10/27/16 04:33 Seg Neutrophils # 5.4 K/mm3 (1.8-7.7) 10/27/16 04:33 PT 15.5 Sec. (12.2-14.9) H 10/26/16 11:00 INR 1.24 (0.87-1.13) H 10/26/16 11:00 VBG pH 7.331 (7.320-7.420) 10/26/16 11:00 Sodium 139 mmol/L (137-145) 10/27/16 04:33 Potassium 3.3 mmol/L (3.6-5.0) L 10/27/16 04:33 Chloride 99.0 mmol/L (98-107) 10/27/16 04:33 Carbon Dioxide 29 mmol/L (22-30) 10/27/16 04:33 Anion Gap 14 mmol/L 10/27/16 04:33 BUN 10 mg/dL (7-17) 10/27/16 04:33 Creatinine 0.7 mg/dL (0.7-1.2) 10/27/16 04:33 Estimated GFR > 60 ml/min 10/27/16 04:33 BUN/Creatinine Ratio 14.28 % 10/27/16 04:33 Glucose 106 mg/dL (65-100) H 10/27/16 04:33 Lactic Acid 1.00 mmol/L (0.7-2.0) 10/26/16 13:37 Calcium 8.1 mg/dL (8.4-10.2) L 10/27/16 04:33 Total Bilirubin 0.70 mg/dL (0.1-1.2) 10/27/16 04:33 AST 15 units/L (5-40) 10/27/16 04:33 ALT < 5 units/L (7-56) L 10/27/16 04:33 Alkaline Phosphatase 53 units/L (35-129) 10/27/16 04:33 Total Protein 7.8 g/dL (6.3-8.2) 10/27/16 04:33 Albumin 2.2 g/dL (3.9-5) L 10/27/16 04:33 Albumin/Globulin Ratio 0.4 % 10/27/16 04:33 Urine Color [place] (Yellow) 10/26/16 10:58 Urine Turbidity Cloudy (Clear) 10/26/16 10:58 Urine pH 5.0 (5.0-7.0) 10/26/16 10:58 Ur Specific [place] 1.021 (1.003-1.030) 10/26/16 10:58 Urine Protein 100 mg/dl mg/dL (Negative) 10/26/16 10:58 Urine Glucose (UA) Neg mg/dL (Negative) 10/26/16 10:58 Urine Ketones Tr mg/dL (Negative) 10/26/16 10:58 Urine Blood Sm (Negative) 10/26/16 10:58 Urine Nitrite Neg (Negative) 10/26/16 10:58 Urine Bilirubin Sm (Negative) 10/26/16 10:58 Urine Ictotest Negative (Negative) 10/26/16 10:58 Urine Urobilinogen 4.0 mg/dL (<2.0) 10/26/16 10:58 Ur Leukocyte Esterase Mod (Negative) 10/26/16 10:58 Urine WBC (Auto) > 182.0 /HPF (0.0-6.0) H 10/26/16 10:58 Urine RBC (Auto) 15.0 /HPF (0.0-6.0) 10/26/16 10:58 U Epithel Cells (Auto) 9.0 /HPF (0-13.0) 10/26/16 10:58 Urine Bacteria (Auto) 4+ /HPF (Negative) 10/26/16 10:58 Urine WBC Clumps 3+ /HPF 10/26/16 10:58 Urine Mucus 3+ /HPF 10/26/16 10:58
[2016-10-28] MEDS ORDERED: K-DUR PO ONE (10:00)
[2016-10-28] MEDS: TOPROL XL PO SCH ×2 (10:42→22:03)
[2016-10-28] MEDS: PEPCID PO SCH ×2 (10:45→21:58)
[2016-10-28] MEDS: ZITHROMAX PO SCH (10:45)
[2016-10-28] MEDS: ROCEPHIN/NS 2 GM/100 ML 2 GM/100 ML BAG IV SCH (14:33)
[2016-10-28] MEDS: LOVENOX SUB-Q SCH ×2 (21:59→22:01)
--- NOTE | 2016-10-29 01:21 | Admit Criteria Form ---
Admission Criteria Documentation: URINARY COMPLICATIONS Clinical Indications for Inpatient Care (Place 'X' for any and all applicable criteria): Ongoing inpatient care may be needed for Urinary complications with 1 or more of the following: [ ]I. Reduced urine output (eg, despite adequate hydration) [ ]II. Renal failure. (Also use Renal Failure: Common Complications and Conditions as appropriate) [ ]III. Urinary retention requiring drainage or surgery(19)(20)(21)(33)(34) [ ]IV. Postobstructive diuresis requiring close monitoring of urine output and intravenous compensation for excessive fluid losses(35) [X]V. Urinary tract infection requiring inpatient care as indicated by ANY ONE of the following(8)(19)(20): [ ]a) Hemodynamic instability [ ]b) Severe symptoms (eg, high fever, severe pain) [ ]c) Vomiting or dehydration requiring ongoing inpatient care [X]d) IV antibiotic needs that cannot be managed at lower level of care [ ]e) Obstruction of collecting system by stone or tumor Extended stay beyond goal length of stay for primary condition may be needed until ALL of the following are present(3)(4)(5)(8): [ ]a) Renal function (creatinine) at baseline, or daily decreases in creatinine consistent with renal function return [ ]b) Voiding adequately or with urinary catheter or percutaneous suprapubic tube and management regimen in place that is performable at lower level of care. [ ]c) Urine output adequate [ ]d) Fever absent or resolving [ ]e) Infection absent or treatable at next level of care The original [facility] content created by [email or web address] has been revised. The portions of the content which have been revised are identified through the use of italic text or in bold, and [facility] has neither reviewed nor approved the modified material. All other unmodified content is copyright [facility] [employer] Please see references footnoted in the original [facility] [employer] edition 2017 Admission Criteria Met: Yes
[2016-10-29 06:03] LABS: Anion Gap 14 mmol/L; Blood Urea Nitrogen 6 mg/dL (7-17); Calcium 8.4 mg/dL (8.4-10.2); Carbon Dioxide 27 mmol/L (22-30); Chloride 99.5 mmol/L (98-107); Glucose 88 mg/dL (65-100); Potassium 3.7 mmol/L (3.6-5.0); Sodium 137 mmol/L (137-145)
[2016-10-29] MEDS: ZITHROMAX PO SCH (10:28)
[2016-10-29] MEDS: PEPCID PO SCH ×2 (10:28→22:25)
[2016-10-29] MEDS: TOPROL XL PO SCH ×2 (10:31→22:27)
--- NOTE | 2016-10-29 15:14 | Query- Pneumonia Documented ---
Alex Benitez___Sis Date:___10/29/2016 Forensic Economist/CDS:____Maricarmen Phone#:___[phone] Exercise your independent professional judgment when responding to query. Questions asked do not imply a particular answer is desired or expected. We greatly appreciate your clarification on this issue. Clinical Documentation States: 71 Year old female was admitted on 10/26/2016. The Hospitalist H&P states "This is a 71-year-old female who reports a past medical history of hypertension and takes metoprolol presents today with a complaint of weakness, dizziness, lightheadedness, near syncope and hypotension. " The Hospitalist progress note on 10/28/2016 states "Assessment and plan: --Gram-negative urinary tract infection Continue current antibiotics, follow culture sensitivities and adjust. Supportive care with IV fluids --Community-acquired pneumonia, oxygen titrate O2 sats more than 90% Rocephin and Zithromax, follow cultures Please further specify known or suspected Etiology: [ ] Aspiration Pneumonia [ x] Gram Negative Pneumonia [ ] Gram Positive Pneumonia [ ] Pseudomonas Pneumonia [ ] MRSA - related Pneumonia [ ] Viral Pneumonia [ ] Candidal Pneumonia [ ] Other: [ ] Unable to determine Present on Admission: [x ] Yes (Y) [ ] Clinically undeterminable (W) [ ] No (N) Please also document response in your Progress Notes and/or Discharge Summary and indicate if the condition was present on admission. ASHIA
[2016-10-29] MEDS: ROCEPHIN/NS 2 GM/100 ML 2 GM/100 ML BAG IV SCH (15:35)
--- NOTE | 2016-10-29 16:45 | Progress Note ---
Assessment and Plan Assessment and plan: --Abnormal chest x-ray/possible mass Will get CT chest with contrast to rule out lung mass. Consider pulmonary evaluation if needed --Gram-negative urinary tract infection Continue current antibiotics, follow culture sensitivities and adjust. Supportive care with IV fluids --Hypokalemia; replace per protocol ,closely monitor electrolytes --Community-acquired pneumonia, oxygen titrate O2 sats more than 90% Rocephin and Zithromax, follow cultures --Hypertension; well controlled Continue current antihypertensives and when necessary medications --Moderate to severe protein calorie malnutrition; nutrition supplements, supportive care --Full CODE STATUS --DVT prophylaxis Lovenox Out of bed to chair, ambulate as tolerated Possible discharge tomorrow if CT chest is negative History Interval history: Patient seen and evaluated medical records reviewed Patient feels better if no new complaints Abdomen oriented 3 not in acute distress Hospitalist Physical - Constitutional Vitals: Temp Pulse Resp BP Pulse Ox 98.7 F 76 20 94/50 97 10/29/16 09:53 10/29/16 10:31 10/29/16 10:00 10/29/16 10:31 10/29/16 10:00 General appearance: Present: no acute distress, well-nourished - EENT Eyes: Present: PERRL, EOM intact - Neck Neck: Present: supple, normal ROM - Respiratory Respiratory effort: normal Respiratory: bilateral: diminished, rhonchi, negative: rales, wheezing - Cardiovascular Rhythm: regular Heart Sounds: Present: S1 & S2 - Extremities Extremities: no ischemia, No edema - Abdominal General gastrointestinal: soft, non-tender, non-distended, normal bowel sounds - Integumentary Integumentary: Present: clear, warm - Psychiatric Psychiatric: appropriate mood/affect, cooperative - Neurologic Neurologic: CNII-XII intact, moves all extremities Results - Labs CBC & Chem 7: 10/27/16 04:33 10/29/16 04:43 Labs: Laboratory Last Values WBC 8.0 K/mm3 (4.5-11.0) 10/27/16 04:33 RBC 3.32 M/mm3 (3.65-5.03) L 10/27/16 04:33 Hgb 10.3 gm/dl (10.1-14.3) 10/27/16 04:33 Hct 30.5 % (30.3-42.9) D 10/27/16 04:33 MCV 92 fl (79-97) 10/27/16 04:33 MCH 31 pg (28-32) 10/27/16 04:33 MCHC 34 % (30-34) 10/27/16 04:33 RDW 14.5 % (13.2-15.2) 10/27/16 04:33 Plt Count 334 K/mm3 (140-440) 10/27/16 04:33 Lymph % (Auto) 19.3 % (13.4-35.0) 10/27/16 04:33 [place] % (Auto) 12.4 % (0.0-7.3) H 10/27/16 04:33 Eos % (Auto) 0.6 % (0.0-4.3) 10/27/16 04:33 Baso % (Auto) 0.4 % (0.0-1.8) 10/27/16 04:33 Lymph # 1.5 K/mm3 (1.2-5.4) 10/27/16 04:33 [place] # 1.0 K/mm3 (0.0-0.8) H 10/27/16 04:33 Eos # 0.0 K/mm3 (0.0-0.4) 10/27/16 04:33 Baso # 0.0 K/mm3 (0.0-0.1) 10/27/16 04:33 Seg Neutrophils % 67.3 % (40.0-70.0) 10/27/16 04:33 Seg Neutrophils # 5.4 K/mm3 (1.8-7.7) 10/27/16 04:33 PT 15.5 Sec. (12.2-14.9) H 10/26/16 11:00 INR 1.24 (0.87-1.13) H 10/26/16 11:00 VBG pH 7.331 (7.320-7.420) 10/26/16 11:00 Sodium 137 mmol/L (137-145) 10/29/16 04:43 Potassium 3.7 mmol/L (3.6-5.0) 10/29/16 04:43 Chloride 99.5 mmol/L (98-107) 10/29/16 04:43 Carbon Dioxide 27 mmol/L (22-30) 10/29/16 04:43 Anion Gap 14 mmol/L 10/29/16 04:43 BUN 6 mg/dL (7-17) L 10/29/16 04:43 Creatinine 0.6 mg/dL (0.7-1.2) L 10/29/16 04:43 Estimated GFR > 60 ml/min 10/29/16 04:43 BUN/Creatinine Ratio 10.00 % 10/29/16 04:43 Glucose 88 mg/dL (65-100) 10/29/16 04:43 Lactic Acid 1.00 mmol/L (0.7-2.0) 10/26/16 13:37 Calcium 8.4 mg/dL (8.4-10.2) 10/29/16 04:43 Total Bilirubin 0.70 mg/dL (0.1-1.2) 10/27/16 04:33 AST 15 units/L (5-40) 10/27/16 04:33 ALT < 5 units/L (7-56) L 10/27/16 04:33 Alkaline Phosphatase 53 units/L (35-129) 10/27/16 04:33 Total Protein 7.8 g/dL (6.3-8.2) 10/27/16 04:33 Albumin 2.2 g/dL (3.9-5) L 10/27/16 04:33 Albumin/Globulin Ratio 0.4 % 10/27/16 04:33 Urine Color [place] (Yellow) 10/26/16 10:58 Urine Turbidity Cloudy (Clear) 10/26/16 10:58 Urine pH 5.0 (5.0-7.0) 10/26/16 10:58 Ur Specific [place] 1.021 (1.003-1.030) 10/26/16 10:58 Urine Protein 100 mg/dl mg/dL (Negative) 10/26/16 10:58 Urine Glucose (UA) Neg mg/dL (Negative) 10/26/16 10:58 Urine Ketones Tr mg/dL (Negative) 10/26/16 10:58 Urine Blood Sm (Negative) 10/26/16 10:58 Urine Nitrite Neg (Negative) 10/26/16 10:58 Urine Bilirubin Sm (Negative) 10/26/16 10:58 Urine Ictotest Negative (Negative) 10/26/16 10:58 Urine Urobilinogen 4.0 mg/dL (<2.0) 10/26/16 10:58 Ur Leukocyte Esterase Mod (Negative) 10/26/16 10:58 Urine WBC (Auto) > 182.0 /HPF (0.0-6.0) H 10/26/16 10:58 Urine RBC (Auto) 15.0 /HPF (0.0-6.0) 10/26/16 10:58 U Epithel Cells (Auto) 9.0 /HPF (0-13.0) 10/26/16 10:58 Urine Bacteria (Auto) 4+ /HPF (Negative) 10/26/16 10:58 Urine WBC Clumps 3+ /HPF 10/26/16 10:58 Urine Mucus 3+ /HPF 10/26/16 10:58
--- NOTE | 2016-10-29 18:33 | Cat Scan Report ---
FINAL REPORT EXAM: CT CHEST W CON HISTORY: Abnormal CXR TECHNIQUE: CTA of chest with IV contrast. Coronal and sagittal and MIP reconstructed images provided. PRIORS: None currently available. FINDINGS: Large heterogeneous lobulated mass with irregular margins measuring 6.9 x 8.4 x 7.7 cm extending into the right peritracheal region. Heterogeneous enhancement identified. Constriction of a right upper lobe pulmonary artery branch identified. Associated right suprahilar lymph node with appears pathologic measuring 30.1 x 19.8 mm identified. Surrounding interseptal thickening probably represents lymphangitic spread of tumor. No pneumothorax. Small right pleural effusion with adjacent compressive atelectasis. Constriction of right upper lobe bronchi identified. No direct invasion into the right mainstem bronchus noted. Trachea appears intact. No distinct consolidation. Left lung appears relatively clear. Cystic change in the left lower lung identified. Axillary regions are unremarkable. Enlarged AP window lymph node identified measuring 20.4 x 13.3 mm. Prominent right hilar lymph node again noted. Left hilar regions unremarkable. Images of the esophagus are unremarkable. No thoracic aortic aneurysm or dissection. Main pulmonary artery is unremarkable. Mass-effect on the right main pulmonary artery noted. Construction of right upper lobe pulmonary arteries identified. No distinct pulmonary embolus identified. No vascular invasion identified. Heart size is within normal limits. No pericardial effusion. Contracted gallbladder around gallstones identified. Partially imaged left renal cyst noted. Adrenals are unremarkable. Postsurgical changes are present within the stomach. No suspicious osseous lesions on this limited examination of the skeleton. Metastatic disease better evaluated with bone scan. Degenerative changes are present in the spine. IMPRESSION: Right upper low mass extending into the right peritracheal region and portions of the right mediastinum. Reactive pathological mediastinal and right hilar adenopathy suspected. Surrounding interseptal thickening probably represents lymphangitic spread. Mass constricts the right upper lobe bronchi and arteries. Small right pleural effusion.
[2016-10-29] MEDS: LOVENOX SUB-Q SCH (22:27)
[2016-10-30 05:20] LABS: Basophils % (Auto) 0.4 % (0.0-1.8); Eosinophils % (Auto) 0.5 % (0.0-4.3); Hematocrit 31.4 % (30.3-42.9); Hemoglobin 10.6 gm/dl (10.1-14.3); Mean Corpuscular HGB Conc 34 % (30-34); Mean Corpuscular Hemoglobin 31 pg (28-32); Mean Corpuscular Volume 92 fl (79-97); Platelet Count 327 K/mm3 (140-440); Red Blood Count 3.43 M/mm3 (3.65-5.03); Red Cell Distribution Width 14.4 % (13.2-15.2); White Blood Count 8.3 K/mm3 (4.5-11.0)
[2016-10-30 05:34] LABS: Anion Gap 17 mmol/L; BUN/Creatinine Ratio 8.33; Blood Urea Nitrogen 5 mg/dL (7-17); Calcium 8.3 mg/dL (8.4-10.2); Carbon Dioxide 26 mmol/L (22-30); Chloride 96.3 mmol/L (98-107); Glucose 93 mg/dL (65-100); Potassium 3.7 mmol/L (3.6-5.0); Sodium 136 mmol/L (137-145)
[2016-10-30] MEDS: PEPCID PO SCH ×2 (10:33→21:40)
[2016-10-30] MEDS: TOPROL XL PO SCH ×2 (10:33→21:41)
[2016-10-30] MEDS: ZITHROMAX PO SCH (10:34)
--- NOTE | 2016-10-30 11:52 | Consultation ---
History of Present Illness Consult date: 10/30/16 Reason for consult: dyspnea, lung mass History of present illness: 71 y/o female, admitted with weakness, dizziness, had abnormal CXR. CT chest done last night, yesterday shows lung mass. Pulm consulted for bronch with biospy. Past History Social history: smoking (50+ years) Medications and Allergies Allergies Allergy/AdvReac Type Severity Reaction Status Date / Time No Known Allergies Allergy Verified 03/16/14 21:25 Home Medications Medication Instructions Recorded Confirmed Last Taken Type Metoprolol Xl [Metoprolol 12.5 mg PO BID 10/26/16 10/26/16 10/25/16 History SUCCINATE ER TAB] Active Meds: Active Medications Acetaminophen (Tylenol) 650 mg PO Q4H PRN PRN Reason: Pain MILD(1-3)/Fever >100.5/CONNOLLY Last Admin: 10/27/16 03:23 Dose: 650 mg Azithromycin (Zithromax) 500 mg PO QDAY [facility] Last Admin: 10/30/16 10:34 Dose: 500 mg Bisacodyl (Dulcolax) 10 mg DE QDAY PRN PRN Reason: Constipation unrelieved by MOM Enoxaparin Sodium (Lovenox) 40 mg SUB-Q QDAY@2200 [facility] Last Admin: 10/29/16 22:27 Dose: Not Given Famotidine (Pepcid) 20 mg PO BID [facility] Last Admin: 10/30/16 10:33 Dose: 20 mg Hydromorphone HCl (Dilaudid) 0.5 mg IV Q3H PRN PRN Reason: Pain , Severe (7-10) Ceftriaxone Sodium (Rocephin/Ns 2 Gm/100 Ml) 2 gm in 100 mls @ 200 mls/hr IV Q24H [facility] PRN Reason: Protocol Last Admin: 10/29/16 15:35 Dose: 200 mls/hr Magnesium Hydroxide (Milk Of Magnesia) 30 ml PO Q4H PRN PRN Reason: Constipation Metoprolol Succinate (Toprol Xl) 12.5 mg PO BID [facility] Last Admin: 10/30/16 10:33 Dose: 12.5 mg Ondansetron HCl (Zofran) 4 mg IV Q8H PRN PRN Reason: N/V unrelieved by Reglan Oxycodone/Acetaminophen (Percocet 5/325) 1 tab PO Q6H PRN PRN Reason: Pain, Moderate (4-6) Review of Systems All systems: negative Constitutional: other (50lb weight loss since August) Physical Examination Vital signs: Vital Signs Pulse Resp 97 H 15 10/26/16 10:04 10/26/16 10:04 General appearance: no acute distress, alert ENT: oropharynx dry Neck: supple Effort: normal Ascultation: Bilateral: diminished breath sounds Percussion: Bilateral: not dull Tactile fremitus: Bilateral: normal Results - Laboratory Findings CBC and BMP: 10/30/16 04:33 10/30/16 04:33 PT/INR, D-dimer PT 15.5 Sec. (12.2-14.9) H 10/26/16 11:00 INR 1.24 (0.87-1.13) H 10/26/16 11:00 Abnormal lab findings: Abnormal Labs 10/27/16 10/27/16 10/29/16 04:33 04:33 04:43 RBC 3.32 L [place] % (Auto) 12.4 H Lymph # [place] # 1.0 H Seg Neutrophils % Sodium Potassium 3.3 L Chloride BUN 6 L Creatinine 0.6 L Glucose 106 H Calcium 8.1 L ALT < 5 L Albumin 2.2 L 10/30/16 10/30/16 04:33 04:33 RBC 3.43 L [place] % (Auto) 11.5 H Lymph # 1.1 L [place] # 0.9 H Seg Neutrophils % 73.8 H Sodium 136 L Potassium Chloride 96.3 L BUN 5 L Creatinine 0.6 L Glucose Calcium 8.3 L ALT Albumin - Diagnostic Findings Chest x-ray: image reviewed CT scan - chest: image reviewed Assessment and Plan 71 y/o female with lung mass 1. Will attempt to bronch this week with biospy, scheduled for 2. NPO after midnight on Saturday going into morning
[2016-10-30] MEDS: ROCEPHIN/NS 2 GM/100 ML 2 GM/100 ML BAG IV SCH (14:07)
--- NOTE | 2016-10-30 17:34 | Progress Note ---
Assessment and Plan Assessment and plan: --Abnormal chest x-ray/possible mass Will get CT chest with contrast to rule out lung mass. Consider pulmonary evaluation if needed==> bronchoscopy on per pulmonology --Gram-negative urinary tract infection Continue current antibiotics, follow culture sensitivities and adjust. Supportive care with IV fluids --Hypokalemia; replace per protocol ,closely monitor electrolytes --Community-acquired pneumonia, oxygen titrate O2 sats more than 90% Rocephin and Zithromax, follow cultures --Hypertension; well controlled Continue current antihypertensives and when necessary medications --Moderate to severe protein calorie malnutrition; nutrition supplements, supportive care --Full CODE STATUS --DVT prophylaxis Lovenox History Interval history: Patient seen and examined. Follow up on current diagnosis/lung mass. Overnight uneventful. No cp, sob, v or severe headaches. Imaging, old records, testing, labs, nursing notes reviewed. Hospitalist Physical - Physical exam Narrative exam: GEN: WDWN, NAD, AWAKE, ALERT, ORIENTATED x 3 HEENT: NCAT, PERRL, EOMI, OP CLEAR NECK: SUPPLE, NO THYROMEGALY, NO JVD, NO LAD CVS: RRR, NORMAL S1S2 LUNGS/CHEST: CTA B, NORMAL CHEST EXPANSION B, GOOD AIR ENTRY B ABD: SOFT, NTND, GBS, NO REBOUND OR GUARDING EXT/SKIN: NO SIGNIFICANT EDEMA OR RASH MSK: FROM X 4 EXTREMITIES NEURO: CN 2-12 GROSSLY INTACT, NO FOCAL DEFICITS PSY: CALM - Constitutional Vitals: Temp Pulse Resp BP Pulse Ox 98.9 F 104 H 20 112/64 95 10/30/16 09:46 10/30/16 10:33 10/30/16 09:46 10/30/16 10:33 10/29/16 20:00 General appearance: Present: no acute distress, well-nourished Results - Labs CBC & Chem 7: 10/30/16 04:33 10/30/16 04:33 Labs: Laboratory Last Values WBC 8.3 K/mm3 (4.5-11.0) 10/30/16 04:33 RBC 3.43 M/mm3 (3.65-5.03) L 10/30/16 04:33 Hgb 10.6 gm/dl (10.1-14.3) 10/30/16 04:33 Hct 31.4 % (30.3-42.9) 10/30/16 04:33 MCV 92 fl (79-97) 10/30/16 04:33 MCH 31 pg (28-32) 10/30/16 04:33 MCHC 34 % (30-34) 10/30/16 04:33 RDW 14.4 % (13.2-15.2) 10/30/16 04:33 Plt Count 327 K/mm3 (140-440) 10/30/16 04:33 Lymph % (Auto) 13.8 % (13.4-35.0) 10/30/16 04:33 [place] % (Auto) 11.5 % (0.0-7.3) H 10/30/16 04:33 Eos % (Auto) 0.5 % (0.0-4.3) 10/30/16 04:33 Baso % (Auto) 0.4 % (0.0-1.8) 10/30/16 04:33 Lymph # 1.1 K/mm3 (1.2-5.4) L 10/30/16 04:33 [place] # 0.9 K/mm3 (0.0-0.8) H 10/30/16 04:33 Eos # 0.0 K/mm3 (0.0-0.4) 10/30/16 04:33 Baso # 0.0 K/mm3 (0.0-0.1) 10/30/16 04:33 Seg Neutrophils % 73.8 % (40.0-70.0) H 10/30/16 04:33 Seg Neutrophils # 6.1 K/mm3 (1.8-7.7) 10/30/16 04:33 PT 15.5 Sec. (12.2-14.9) H 10/26/16 11:00 INR 1.24 (0.87-1.13) H 10/26/16 11:00 VBG pH 7.331 (7.320-7.420) 10/26/16 11:00 Sodium 136 mmol/L (137-145) L 10/30/16 04:33 Potassium 3.7 mmol/L (3.6-5.0) 10/30/16 04:33 Chloride 96.3 mmol/L (98-107) L 10/30/16 04:33 Carbon Dioxide 26 mmol/L (22-30) 10/30/16 04:33 Anion Gap 17 mmol/L 10/30/16 04:33 BUN 5 mg/dL (7-17) L 10/30/16 04:33 Creatinine 0.6 mg/dL (0.7-1.2) L 10/30/16 04:33 Estimated GFR > 60 ml/min 10/30/16 04:33 BUN/Creatinine Ratio 8.33 % 10/30/16 04:33 Glucose 93 mg/dL (65-100) 10/30/16 04:33 Lactic Acid 1.00 mmol/L (0.7-2.0) 10/26/16 13:37 Calcium 8.3 mg/dL (8.4-10.2) L 10/30/16 04:33 Phosphorus 2.90 mg/dL (2.5-4.5) 10/30/16 04:33 Magnesium 1.90 mg/dL (1.7-2.3) 10/30/16 04:33 Total Bilirubin 0.70 mg/dL (0.1-1.2) 10/27/16 04:33 AST 15 units/L (5-40) 10/27/16 04:33 ALT < 5 units/L (7-56) L 10/27/16 04:33 Alkaline Phosphatase 53 units/L (35-129) 10/27/16 04:33 Total Protein 7.8 g/dL (6.3-8.2) 10/27/16 04:33 Albumin 2.2 g/dL (3.9-5) L 10/27/16 04:33 Albumin/Globulin Ratio 0.4 % 10/27/16 04:33 Urine Color [place] (Yellow) 10/26/16 10:58 Urine Turbidity Cloudy (Clear) 10/26/16 10:58 Urine pH 5.0 (5.0-7.0) 10/26/16 10:58 Ur Specific [place] 1.021 (1.003-1.030) 10/26/16 10:58 Urine Protein 100 mg/dl mg/dL (Negative) 10/26/16 10:58 Urine Glucose (UA) Neg mg/dL (Negative) 10/26/16 10:58 Urine Ketones Tr mg/dL (Negative) 10/26/16 10:58 Urine Blood Sm (Negative) 10/26/16 10:58 Urine Nitrite Neg (Negative) 10/26/16 10:58 Urine Bilirubin Sm (Negative) 10/26/16 10:58 Urine Ictotest Negative (Negative) 10/26/16 10:58 Urine Urobilinogen 4.0 mg/dL (<2.0) 10/26/16 10:58 Ur Leukocyte Esterase Mod (Negative) 10/26/16 10:58 Urine WBC (Auto) > 182.0 /HPF (0.0-6.0) H 10/26/16 10:58 Urine RBC (Auto) 15.0 /HPF (0.0-6.0) 10/26/16 10:58 U Epithel Cells (Auto) 9.0 /HPF (0-13.0) 10/26/16 10:58 Urine Bacteria (Auto) 4+ /HPF (Negative) 10/26/16 10:58 Urine WBC Clumps 3+ /HPF 10/26/16 10:58 Urine Mucus 3+ /HPF 10/26/16 10:58
[2016-10-30] MEDS: LOVENOX SUB-Q SCH (21:40)
--- NOTE | 2016-10-31 08:07 | Progress Note ---
Assessment and Plan 71 y/o female with lung mass 1. Will attempt to bronch this week with biospy, scheduled for Tomorrow 2. NPO after midnight tonight Subjective Date of service: 10/31/16 Interval history: No acute events. Objective Vital Signs - 12hr 10/30/16 10/30/16 10/30/16 21:41 22:00 23:00 Temperature 98.6 F Pulse Rate 84 86 Respiratory 20 Rate Respiratory 20 Rate [ Generalized] Blood Pressure 119/51 124/64 O2 Sat by Pulse 98 92 Oximetry Constitutional: no acute distress, alert ENT: oropharynx dry Neck: supple Effort: normal Ascultation: Bilateral: diminished breath sounds Percussion: Bilateral: not dull Tactile fremitus: Bilateral: normal CBC and BMP: 10/30/16 04:33 10/30/16 04:33 ABG, PT/INR, D-dimer: PT/INR, D-dimer PT 15.5 Sec. (12.2-14.9) H 10/26/16 11:00 INR 1.24 (0.87-1.13) H 10/26/16 11:00 Abnormal lab findings: Abnormal Labs 10/27/16 10/27/16 10/29/16 04:33 04:33 04:43 RBC 3.32 L [place] % (Auto) 12.4 H Lymph # [place] # 1.0 H Seg Neutrophils % Sodium Potassium 3.3 L [place] BUN 6 L Creatinine 0.6 L Glucose 106 H Calcium 8.1 L ALT < 5 L Albumin 2.2 L 10/30/16 10/30/16 04:33 04:33 RBC 3.43 L [place] % (Auto) 11.5 H Lymph # 1.1 L [place] # 0.9 H Seg Neutrophils % 73.8 H Sodium 136 L Potassium Chloride 96.3 L BUN 5 L Creatinine 0.6 L Glucose Calcium 8.3 L ALT Albumin
[2016-10-31] MEDS: TOPROL XL PO SCH ×3 (10:04→21:58)
[2016-10-31] MEDS: PEPCID PO SCH ×2 (10:05→21:57)
[2016-10-31] MEDS: ZITHROMAX PO SCH (10:05)
[2016-10-31] MEDS: ROCEPHIN/NS 2 GM/100 ML 2 GM/100 ML BAG IV SCH (14:18)
[2016-10-31] MEDS: TYLENOL PO PRN (20:41)
[2016-10-31] MEDS: LOVENOX SUB-Q SCH (21:58)
[2016-11-01] MEDS ORDERED: NACL 0.9% 1000 ML 1,000 ML ONE ×2 (09:50→13:10)
[2016-11-01] MEDS ORDERED: LIDOCAINE VISCOUS 2% ONE (09:51)
[2016-11-01] MEDS ORDERED: HURRICAINE ONE 20% TOPICAL SPRAY MM (09:51)
[2016-11-01] MEDS ORDERED: XYLOCAINE 1% 20 mL ONE (09:51)
[2016-11-01] MEDS ORDERED: NEO SYNEPHRINE ONE (09:52)
[2016-11-01] MEDS ORDERED: SUBLIMAZE ONE (10:26)
[2016-11-01] MEDS ORDERED: DIPRIVAN 10 MG/ML IV ONE ×2 (10:27→10:31)
[2016-11-01] MEDS ORDERED: AMIDATE IV ONE (10:27)
[2016-11-01] MEDS ORDERED: VERSED ONE (10:27)
[2016-11-01] MEDS ORDERED: ADRENALIN ONE (10:44)
[2016-11-01] MEDS ORDERED: NACL 0.9% 1000 ML 1,000 ML IV SCH (11:00)
--- NOTE | 2016-11-01 11:10 | Procedure Note ---
Date of procedure: 11/01/16 Pre-op diagnosis: Lung mass Post-op diagnosis: same Procedure: Bronchoscopy with Biospy and Brushing After obtaining informed consent, patient taken to END suite and preppred. Right nare patent and anesthetized. using propofol induction with MAC, patient sedated. Flexible bronchoscope entered into right nare. Vocal cords visualized. Dark material seen on arytenoids bilateral, left greater than right. Could be old blood. VC visualized and good AB as well as AD duction seen. Lidocaine x3 used. Scoped passed through vocal cords without difficulty. Lidocaine x1 to trachea then lidocaine administered to right and left mainstem respectively. On airway inspection of right, large endobronchial lesion seen at orifice to right upper lobe. Completely occluded, unable to pass scope by it. No other endobronchial lesions seen. Photos taken. Biopsy forceps as well as brushings were taken from there. Good samples achieved. Some bleeding but no active bleeding post biopsy. Airway inspection on left was normal. Scope retracted and patient recovering. Samples sent for pathology and cytology. Anesthesia: MAC Surgeon: CHAPARRITA NAIDU Estimated blood loss: minimal Pathology: list (Right Upper lobe biopsy and brushings) Specimen disposition: to lab Condition: stable Disposition: floor
--- NOTE | 2016-11-01 11:11 | Anesthesia Day of Surgery ---
Anesthesia Day of Surgery - Day of Surgery Patient Examined: Yes Patient H&P Reviewed: Yes Patient is NPO: Yes
--- NOTE | 2016-11-01 11:12 | Anesthesia Consultation ---
Anesthesia Consult and Med Hx Date of service: 11/01/16 - Pulmonary Exam CTA: Yes - Cardiac Exam Cardiac Exam: RRR - Pre-Operative Health Status ASA Pre-Surgery Classification: ASA3 Proposed Anesthetic Plan: MAC - Pulmonary Hx Smoking: Yes (x 50 yr) Hx Pneumonia: Yes (CT scan shows RUL mass) - Cardiovascular System Hx Hypertension: Yes (no meds, CHF) - Central Nervous System Hx Seizures: No CVA: No - Additional Comments Anesthesia Medical History Comments: NAC
--- NOTE | 2016-11-01 11:12 | Progress Note ---
Assessment and Plan 71 y/o female with lung mass 1. Bronch today Subjective Date of service: 11/01/16 Interval history: No acute events. Nervous about bronch Objective Vital Signs - 12hr 11/01/16 11/01/16 11/01/16 09:25 10:09 10:13 Temperature 98.9 F 98 F 98 F Pulse Rate 83 100 H 100 H Respiratory 18 18 18 Rate Blood Pressure 106/61 147/79 147/79 O2 Sat by Pulse 98 92 92 Oximetry Constitutional: no acute distress, alert ENT: oropharynx dry Neck: supple Effort: normal Ascultation: Bilateral: diminished breath sounds Percussion: Bilateral: not dull Tactile fremitus: Bilateral: normal CBC and BMP: 10/30/16 04:33 10/30/16 04:33 ABG, PT/INR, D-dimer: PT/INR, D-dimer PT 15.5 Sec. (12.2-14.9) H 10/26/16 11:00 INR 1.24 (0.87-1.13) H 10/26/16 11:00 Abnormal lab findings: Abnormal Labs 10/27/16 10/27/16 10/29/16 04:33 04:33 04:43 RBC 3.32 L [place] % (Auto) 12.4 H Lymph # [place] # 1.0 H Seg Neutrophils % Sodium Potassium 3.3 L [place] BUN 6 L Creatinine 0.6 L Glucose 106 H Calcium 8.1 L ALT < 5 L Albumin 2.2 L 10/30/16 10/30/16 04:33 04:33 RBC 3.43 L [place] % (Auto) 11.5 H Lymph # 1.1 L [place] # 0.9 H Seg Neutrophils % 73.8 H Sodium 136 L Potassium Chloride 96.3 L BUN 5 L Creatinine 0.6 L Glucose Calcium 8.3 L ALT Albumin
--- NOTE | 2016-11-01 12:35 | XRay Report ---
PORTABLE CHEST INDICATION: Status post right upper lobe biopsy. COMPARISON: 10/26/2016 FINDINGS: Portable, frontal chest radiograph again demonstrates right upper lobe hazy opacity, now overall slightly larger, approximately 10-11 cm in size and again marginated by the minor fissure. Clear remainder lungs. No pneumothorax. Stable cardiomediastinal silhouette, aortic knob calcification, EKG leads and demineralized bones with few degenerative changes. 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 CONCLUSION: Right upper lobe opacity/known large mass and few other findings noted, as above. Thank you for the opportunity to participate in this patient's care.
[2016-11-01] MEDS: PEPCID PO SCH ×2 (12:40→22:53)
[2016-11-01] MEDS: ZITHROMAX PO SCH (12:40)
[2016-11-01] MEDS: TOPROL XL PO SCH (12:40)
--- NOTE | 2016-11-01 12:50 | Post Anesthesia Evaluation ---
- Post Anesthesia Evaluation Patient Participated: Yes Airway Patent: Yes Stable Respiratory Function: Yes Nausea/Vomiting: No Temp > 96.8F: Yes Pain Manageable: Yes Adequeate Hydration: Yes Anesthesia Complications: No Block Receding Appropriately: Not Applicable Patient on Ventilator: No
[2016-11-01] MEDS: ROCEPHIN/NS 2 GM/100 ML 2 GM/100 ML BAG IV SCH (14:48)
--- NOTE | 2016-11-01 15:53 | Progress Note ---
Assessment and Plan Assessment and plan: --Abnormal chest x-ray/possible mass Will get CT chest with contrast to rule out lung mass. Consider pulmonary evaluation if needed==> bronchoscopy done today --Gram-negative urinary tract infection Continue current antibiotics, follow culture sensitivities and adjust. Supportive care with IV fluids --Hypokalemia; replace per protocol ,closely monitor electrolytes --Community-acquired pneumonia, oxygen titrate O2 sats more than 90% Rocephin and Zithromax, follow cultures --Hypertension; well controlled Continue current antihypertensives and when necessary medications --Moderate to severe protein calorie malnutrition; nutrition supplements, supportive care --Full CODE STATUS --DVT prophylaxis scd after the procedure Date of procedure: 11/01/16 Pre-op diagnosis: Lung mass Post-op diagnosis: same Procedure: Bronchoscopy with Biospy and Brushing After obtaining informed consent, patient taken to END suite and preppred. Right nare patent and anesthetized. using propofol induction with MAC, patient sedated. Flexible bronchoscope entered into right nare. Vocal cords visualized. Dark material seen on arytenoids bilateral, left greater than right. Could be old blood. VC visualized and good AB as well as AD duction seen. Lidocaine x3 used. Scoped passed through vocal cords without difficulty. Lidocaine x1 to trachea then lidocaine administered to right and left mainstem respectively. On airway inspection of right, large endobronchial lesion seen at orifice to right upper lobe. Completely occluded, unable to pass scope by it. No other endobronchial lesions seen. Photos taken. Biopsy forceps as well as brushings were taken from there. Good samples achieved. Some bleeding but no active bleeding post biopsy. Airway inspection on left was normal. Scope retracted and patient recovering. Samples sent for pathology and cytology. Anesthesia: [facility] [place], [place] Surgeon: CHAPARRITA NAIDU Estimated blood loss: minimal Pathology: list (Right Upper lobe biopsy and brushings) Specimen disposition: to lab Condition: stable Disposition: floor anticipate d/c tomorrow History Interval history: Patient seen and examined. Follow up on current diagnosis/lung mass. Overnight uneventful. No cp, sob, v or severe headaches. Imaging, old records, testing, labs, nursing notes reviewed. Hospitalist Physical - Physical exam Narrative exam: GEN: WDWN, NAD, AWAKE, ALERT, ORIENTATED x 3 HEENT: NCAT, PERRL, EOMI, OP CLEAR NECK: SUPPLE, NO THYROMEGALY, NO JVD, NO LAD CVS: RRR, NORMAL S1S2 LUNGS/CHEST: CTA B, NORMAL CHEST EXPANSION B, GOOD AIR ENTRY B ABD: SOFT, NTND, GBS, NO REBOUND OR GUARDING EXT/SKIN: NO SIGNIFICANT EDEMA OR RASH MSK: FROM X 4 EXTREMITIES NEURO: CN 2-12 GROSSLY INTACT, NO FOCAL DEFICITS PSY: CALM - Constitutional Vitals: Temp Pulse Resp BP Pulse Ox 97.4 F L 97 H 16 104/58 100 11/01/16 10:58 11/01/16 12:42 11/01/16 12:42 11/01/16 12:42 11/01/16 11:29 General appearance: Present: no acute distress, well-nourished Results - Labs CBC & Chem 7: 10/30/16 04:33 10/30/16 04:33 Labs: Laboratory Last Values WBC 8.3 K/mm3 (4.5-11.0) 10/30/16 04:33 RBC 3.43 M/mm3 (3.65-5.03) L 10/30/16 04:33 Hgb 10.6 gm/dl (10.1-14.3) 10/30/16 04:33 Hct 31.4 % (30.3-42.9) 10/30/16 04:33 MCV 92 fl (79-97) 10/30/16 04:33 MCH 31 pg (28-32) 10/30/16 04:33 MCHC 34 % (30-34) 10/30/16 04:33 RDW 14.4 % (13.2-15.2) 10/30/16 04:33 Plt Count 327 K/mm3 (140-440) 10/30/16 04:33 Lymph % (Auto) 13.8 % (13.4-35.0) 10/30/16 04:33 [place] % (Auto) 11.5 % (0.0-7.3) H 10/30/16 04:33 Eos % (Auto) 0.5 % (0.0-4.3) 10/30/16 04:33 Baso % (Auto) 0.4 % (0.0-1.8) 10/30/16 04:33 Lymph # 1.1 K/mm3 (1.2-5.4) L 10/30/16 04:33 [place] # 0.9 K/mm3 (0.0-0.8) H 10/30/16 04:33 Eos # 0.0 K/mm3 (0.0-0.4) 10/30/16 04:33 Baso # 0.0 K/mm3 (0.0-0.1) 10/30/16 04:33 Seg Neutrophils % 73.8 % (40.0-70.0) H 10/30/16 04:33 Seg Neutrophils # 6.1 K/mm3 (1.8-7.7) 10/30/16 04:33 PT 15.5 Sec. (12.2-14.9) H 10/26/16 11:00 INR 1.24 (0.87-1.13) H 10/26/16 11:00 VBG pH 7.331 (7.320-7.420) 10/26/16 11:00 Sodium 136 mmol/L (137-145) L 10/30/16 04:33 Potassium 3.7 mmol/L (3.6-5.0) 10/30/16 04:33 Chloride 96.3 mmol/L (98-107) L 10/30/16 04:33 Carbon Dioxide 26 mmol/L (22-30) 10/30/16 04:33 Anion Gap 17 mmol/L 10/30/16 04:33 BUN 5 mg/dL (7-17) L 10/30/16 04:33 Creatinine 0.6 mg/dL (0.7-1.2) L 10/30/16 04:33 Estimated GFR > 60 ml/min 10/30/16 04:33 BUN/Creatinine Ratio 8.33 % 10/30/16 04:33 Glucose 93 mg/dL (65-100) 10/30/16 04:33 Lactic Acid 1.00 mmol/L (0.7-2.0) 10/26/16 13:37 Calcium 8.3 mg/dL (8.4-10.2) L 10/30/16 04:33 Phosphorus 2.90 mg/dL (2.5-4.5) 10/30/16 04:33 Magnesium 1.90 mg/dL (1.7-2.3) 10/30/16 04:33 Total Bilirubin 0.70 mg/dL (0.1-1.2) 10/27/16 04:33 AST 15 units/L (5-40) 10/27/16 04:33 ALT < 5 units/L (7-56) L 10/27/16 04:33 Alkaline Phosphatase 53 units/L (35-129) 10/27/16 04:33 Total Protein 7.8 g/dL (6.3-8.2) 10/27/16 04:33 Albumin 2.2 g/dL (3.9-5) L 10/27/16 04:33 Albumin/Globulin Ratio 0.4 % 10/27/16 04:33 Urine Color [place] (Yellow) 10/26/16 10:58 Urine Turbidity Cloudy (Clear) 10/26/16 10:58 Urine pH 5.0 (5.0-7.0) 10/26/16 10:58 Ur Specific [place] 1.021 (1.003-1.030) 10/26/16 10:58 Urine Protein 100 mg/dl mg/dL (Negative) 10/26/16 10:58 Urine Glucose (UA) Neg mg/dL (Negative) 10/26/16 10:58 Urine Ketones Tr mg/dL (Negative) 10/26/16 10:58 Urine Blood Sm (Negative) 10/26/16 10:58 Urine Nitrite Neg (Negative) 10/26/16 10:58 Urine Bilirubin Sm (Negative) 10/26/16 10:58 Urine Ictotest Negative (Negative) 10/26/16 10:58 Urine Urobilinogen 4.0 mg/dL (<2.0) 10/26/16 10:58 Ur Leukocyte Esterase Mod (Negative) 10/26/16 10:58 Urine WBC (Auto) > 182.0 /HPF (0.0-6.0) H 10/26/16 10:58 Urine RBC (Auto) 15.0 /HPF (0.0-6.0) 10/26/16 10:58 U Epithel Cells (Auto) 9.0 /HPF (0-13.0) 10/26/16 10:58 Urine Bacteria (Auto) 4+ /HPF (Negative) 10/26/16 10:58 Urine WBC Clumps 3+ /HPF 10/26/16 10:58 Urine Mucus 3+ /HPF 10/26/16 10:58
[2016-11-01] MEDS: LOVENOX SUB-Q SCH (22:53)
--- NOTE | 2016-11-02 07:44 | Progress Note ---
Assessment and Plan 71 y/o female with lung mass, status post bronch with biopsy and brushing, found to have endobronchial lesion of right upper lobe. 1. Confirmed with path this am that they have samples. 2. From a pulmonary standpoint, stable, no objection to discharge 3. Can follow up in the office in 7-10 days for results, will then likely need referral to oncology, or could have onc see patient now and then follow up with them at discharge. Either way is ok with pulmonary. Subjective Date of service: 11/02/16 Interval history: Tolerated bronch well. No acute events overnight. Post-op CXR shows no evidence of PTX Objective Vital Signs - 12hr 11/01/16 22:00 Temperature 99.2 F Pulse Rate 100 H Respiratory 20 Rate Respiratory 20 Rate [ Generalized] Blood Pressure 127/64 O2 Sat by Pulse 96 Oximetry Constitutional: no acute distress, alert ENT: oropharynx dry Neck: supple Effort: normal Ascultation: Bilateral: diminished breath sounds Percussion: Bilateral: not dull Tactile fremitus: Bilateral: normal CBC and BMP: 10/30/16 04:33 10/30/16 04:33 ABG, PT/INR, D-dimer: PT/INR, D-dimer PT 15.5 Sec. (12.2-14.9) H 10/26/16 11:00 INR 1.24 (0.87-1.13) H 10/26/16 11:00 Abnormal lab findings: Abnormal Labs 10/27/16 10/27/16 10/29/16 04:33 04:33 04:43 RBC 3.32 L [place] % (Auto) 12.4 H Lymph # [place] # 1.0 H Seg Neutrophils % Sodium Potassium 3.3 L Chloride BUN 6 L Creatinine 0.6 L Glucose 106 H Calcium 8.1 L ALT < 5 L Albumin 2.2 L 10/30/16 10/30/16 04:33 04:33 RBC 3.43 L [place] % (Auto) 11.5 H Lymph # 1.1 L [place] # 0.9 H Seg Neutrophils % 73.8 H Sodium 136 L Potassium Chloride 96.3 L BUN 5 L Creatinine 0.6 L Glucose Calcium 8.3 L ALT Albumin
[2016-11-02] MEDS: ZITHROMAX PO SCH (09:49)
[2016-11-02] MEDS: PEPCID PO SCH (09:49)
[2016-11-02 09:56] VITALS: BP 126/79
--- NOTE | 2016-11-02 15:18 | Discharge Summary ---
Providers - Providers Date of Admission: 10/26/16 18:05 Date of discharge: 11/02/16 Attending physician: ASHIA WATERS 10/29/16 20:57 Consult to Physician [CONS] Routine Consulting Provider: CHAPARRITA NAIDU Reason For Exam: lung mass Place consult to:: answering service Notified:: yes Phone number called:: [phone] If yes, spoke with:: sim Time called:: 08:15 Comment:: henrik Primary care physician: [employer] Hospitalization Reason for admission: weakness, dizziness Condition: Good Pertinent studies: Chest x-ray CT chest Procedures: Bronchoscopy Hospital course: Patient is a 71 years old female presented for weakness, dizziness, lightheadedness. Initially diagnosed with pneumonia and UTI and started on antibiotics, IV fluids. Chest x-ray showed possible mass. so CT chest was obtained and also showed RUL mass; pulmonary was consulted and underwent bronchoscopy that revealed large endobronchial lesion (biopsy and brushing taken ). She completed antibiotic course and is discharged in stable condition with pulmonary follow-up For biopsy results; may need oncology referral at that time. Discharge diagnoses: RUL mass - suspicion for malignancy, awaiting biopsy results Post obstruction pneumonia Klebsiella UTI Hypertension Hypokalemia Moderate protein calorie malnutrition Disposition: [id number]/TX-06 HOME UNDER HOME [facility] Time spent for discharge: 35 min Core Measure Documentation - Palliative Care Palliative Care/ Comfort Measures: Not Applicable - Core Measures Any of the following diagnoses?: none Exam - Physical Exam Narrative exam: Seen and examined: - Constitutional Vitals: Temp Pulse Resp BP Pulse Ox 99.2 F 84 20 126/79 96 11/02/16 09:54 11/02/16 09:54 11/02/16 09:54 11/02/16 09:54 11/01/16 22:00 General appearance: Present: no acute distress - EENT Eyes: Present: PERRL, EOM intact - Neck Neck: Present: supple, normal ROM. Absent: masses or JVD - Respiratory Respiratory effort: normal Respiratory: right: diminished, negative: rhonchi, wheezing - Cardiovascular Rhythm: regular Heart Sounds: Present: S1 & S2. Absent: systolic murmur - Extremities Extremities: no ischemia - Abdominal General gastrointestinal: Present: soft, non-tender, non-distended, normal bowel sounds - Psychiatric Psychiatric: cooperative - Neurologic Neurologic: CNII-XII intact, no focal deficits Plan Activity: advance as tolerated, fall precautions Diet: low cholesterol, low salt Follow up with: PRIMARY CARE, [Primary Care Provider] - 3-5 Days AYESHA LYONS MD [Staff Physician] - 7 Days Prescriptions: Acetaminophen [Acetaminophen TAB] 650 mg PO Q4H PRN #30 tablet PRN Reason: Pain MILD(1-3)/Fever >100.5/CONNOLLY Bisacodyl [Dulcolax suppos] 10 mg [place] QDAY PRN #30 supp.rect PRN Reason: Constipation unrelieved by MOM Famotidine [Pepcid] 20 mg PO BID #60 tablet Metoprolol Xl [Metoprolol SUCCINATE ER TAB] 12.5 mg PO BID #15 tablet
[2016-11-02] MEDS: TOPROL XL PO SCH (15:37)
[2016-11-02] MEDS: ROCEPHIN/NS 2 GM/100 ML 2 GM/100 ML BAG IV SCH (15:38)
== END 2016-11-02 18:58 | disposition home health service (06) | DRG 166 ==
LOC: ED 10:03 → CC2 18:05
PROVIDERS: ADMIT Internal Medicine; ATTEND Internal Medicine
PROC: 0BBC8ZX Excision of Right Upper Lung Lobe, Via Natural or Artificial Opening Endoscopic, Diagnostic (ICD-10-PCS; principal; 2016-11-01)
DX: J15.6 Pneumonia due to other Gram-negative bacteria (principal); E43 Unspecified severe protein-calorie malnutrition; N39.0 Urinary tract infection, site not specified; E87.6 Hypokalemia; I95.9 Hypotension, unspecified; I11.0 Hypertensive heart disease with heart failure; I50.9 Heart failure, unspecified; R91.8 Other nonspecific abnormal finding of lung field; J18.1 Lobar pneumonia, unspecified organism; B96.89 Other specified bacterial agents as the cause of diseases classified elsewhere; Z68.27 Body mass index [BMI] 27.0-27.9, adult
CPT/HCPCS: 36415; 71010; 71260; 80048; 80053; 81001; 82140; 82805; 83735; 84100; 85025; 85610; 87040; 87076; 87086; 87186; 88104; 88112; 88305; 88341; 88342; 93005; 93010; 96361; 96374; 99406; J0171; J0456; J0696; J1170; J1650; J2250; J2370; J2704; J3010; J7030; J7040; J7042; J7050; Q9967

== ENCOUNTER 2016-12-06 07:52 | Outpatient (CLI) | payer MEDICARE ==
--- NOTE | 2016-12-06 12:06 | PET Report ---
PET SB TO MT INITIAL: HISTORY: Lung cancer. TECHNIQUE: 13.9 millicuries F-18 FDG was administered intravenously. Noncontrast CT images and PET images were obtained from the skull base to the proximal thighs. Fused images were reviewed on a workstation. The patient's blood glucose level measured 116. COMPARISON: CT chest with contrast dated 10/29/16. FINDINGS: BRAIN: physiologic FDG uptake in the imaged brain. NECK: physiologic FDG uptake. MEDIASTINUM: A 1.5 cm AP window lymph node demonstrates a max SUV of 3.8. There may be right hilar adenopathy as well which is contiguous with the large right lung mass. LUNGS: There is a large partially necrotic mass in the right upper lobe measuring 10.2 x 9.6 cm. Max SUV measures 20.4. No additional lung mass. PLEURA/PERICARDIUM: physiologic FDG uptake. THORACIC LYMPH NODES: physiologic FDG uptake. HEPATOBILIARY: physiologic FDG uptake. Mean liver SUV measures 4.2. PANCREAS: physiologic FDG uptake. SPLEEN: physiologic FDG uptake. ADRENAL GLANDS: physiologic FDG uptake. KIDNEYS/RENAL COLLECTING SYSTEMS: physiologic FDG uptake. BOWEL/MESENTERY: physiologic FDG uptake. PELVIC VISCERA: physiologic FDG uptake. ABDOMINAL/PELVIC LYMPH NODES: physiologic FDG uptake. MUSCULOSKELETAL: physiologic FDG uptake. IMPRESSION: Large hypermetabolic right upper lobe lung mass consistent with primary lung cancer. This mass is continuous with the right hilum. Right hilar adenopathy is probably present as well. An AP window lymph node also demonstrates mild hypermetabolic activity as described. No abnormal activity is identified below the hemidiaphragms on PET imaging.
== END 2016-12-06 07:53 | disposition home or self-care (01) ==
LOC: PET 07:52
PROVIDERS: ATTEND Internal Medicine Hematology & Oncology
DX: D49.89 Neoplasm of unspecified behavior of other specified sites (principal); R91.8 Other nonspecific abnormal finding of lung field; Z79.899 Other long term (current) drug therapy
CPT/HCPCS: 78815; 82962; A9552

== ENCOUNTER 2016-12-10 06:40 | Day surgery (SDC) | payer MEDICARE ==
[2016-12-10 07:56] LABS: Hematocrit 34.9 % (30.3-42.9); Hemoglobin 11.6 gm/dl (10.1-14.3); Mean Corpuscular HGB Conc 33 % (30-34); Mean Corpuscular Hemoglobin 30 pg (28-32); Mean Corpuscular Volume 92 fl (79-97); Platelet Count 353 K/mm3 (140-440); Red Blood Count 3.81 M/mm3 (3.65-5.03); Red Cell Distribution Width 14.9 % (13.2-15.2); White Blood Count 10.2 K/mm3 (4.5-11.0)
[2016-12-10 08:08] LABS: INR 1.3 (0.87-1.13)
[2016-12-10 08:09] LABS: Partial Thromboplastin Time 35.2 Sec. (24.2-36.6)
[2016-12-10] MEDS ORDERED: SUBLIMAZE IV ONE (09:00)
[2016-12-10] MEDS ORDERED: VERSED IV ONE ×2 (09:00→09:01)
[2016-12-10] MEDS ORDERED: SUBLIMAZE ONE (09:01)
--- NOTE | 2016-12-10 11:13 | Cat Scan Report ---
CT BONE MARROW ASPIRATION History: Neoplasm of unspecified behavior, lymphoma. Description of procedure: Informed consent was attained. Sterile technique was utilized. Conscious sedation was accomplished with Versed and fentanyl. The patient was sedated for 15 minutes. Independent cardiorespiratory monitoring by RN. Intraobserver time was [address] guidance, a 19-gauge introducer needle was advanced into the right posterior iliac bone. 4 bone marrow aspirations were obtained. One 10-gauge core biopsy was obtained. No complications. Impression: Successful CT-guided bone marrow aspiration and biopsy as described.
[2016-12-10 12:01] LABS: Basophils % (Manual) 0 % (0.0-1.8); Blastocytes % (Manual) 0 %; Eosinophils % (Manual) 0 % (0.0-4.3)
[2016-12-10 12:02] LABS: Diff Status Complete; Platelet Estimate Consistent w Auto; RBC Morphology Normal
[2016-12-10 12:03] LABS: Smudge Cells Rare
[2016-12-10 13:21] VITALS: BP 105/63
== END 2016-12-10 13:25 | disposition home or self-care (01) ==
LOC: CATHLABREC 06:40 → EDSTATUS 08:30 → CATHLABREC 13:25
PROVIDERS: ATTEND Internal Medicine Hematology & Oncology
DX: D49.89 Neoplasm of unspecified behavior of other specified sites (principal); C85.90 Non-Hodgkin lymphoma, unspecified, unspecified site
CPT/HCPCS: 36415; 38221; 85007; 85025; 85097; 85610; 85730; 88161; 88305; 88311; 88313; G0364; J2250; J3010

== ENCOUNTER 2017-02-08 19:04 | Inpatient (IN) | payer MEDICARE ==
[2017-02-08] MEDS ORDERED: D50W (25GM) Vial 50 ML IV ONE (19:27)
[2017-02-08] MEDS ORDERED: D50W (25GM) Vial IV ONE (19:48)
--- NOTE | 2017-02-08 20:28 | Emergency Department Report ---
ED Altered Mental Status HPI - General Chief Complaint: Hypoglycemia Stated Complaint: FAILURE TO THRIVE Time Seen by Provider: 02/08/17 20:25 Source: patient, family, EMS Mode of arrival: Stretcher Limitations: Physical Limitation - History of Present Illness Initial Comments: 71 YO FEMALE WITH H/O LYMPHOMA ON CHEMOTHERAPY WITH LOW BLOOD SUGAR SECONDARY TO FAILURE TO EAT. SHE IS NAUSEATED AND THE CHEMO MAKES THE FOOD TASTED HORRIBLE PER PT. SHE WAS ADMITTED HERE LAST WEEK FOR THE SAME THING. MD Complaint: altered mental status, decreased responsiveness -: Gradual, hour(s) (FEW) Severity: severe Consistency of Symptoms: waxing and waning Context: cancer, other (NOT EATING) - Related Data Home Medications Medication Instructions Recorded Confirmed Last Taken Fluconazole [Diflucan TAB] 100 mg PO DAILY 02/01/17 02/08/17 Unknown Potassium Chloride 20 meq PO DAILY 02/01/17 02/08/17 Unknown Previous Rx's Medication Instructions Recorded Last Taken Type Acetaminophen [Acetaminophen TAB] 650 mg PO Q4H PRN #30 tablet 11/02/16 Unknown Rx Bisacodyl [Dulcolax suppos] 10 mg WA QDAY PRN #30 supp.rect 11/02/16 Unknown Rx Famotidine [Pepcid] 20 mg PO BID #60 tablet 11/02/16 2 Days Ago Rx ~12/08/16 Allopurinol [Zyloprim] 100 mg PO DAILY #30 tablet 02/06/17 Unknown Rx Apixaban [Eliquis] 10 mg PO Q12HR #60 tablet 02/06/17 Unknown Rx Aspirin [Aspirin BABY CHEW TAB] 81 mg PO QDAY #100 tab.chew 02/06/17 Unknown Rx AtorvaSTATin [Lipitor] 40 mg PO QHS #30 tablet 02/06/17 Unknown Rx Bisacodyl [Dulcolax suppos] 10 mg WA QDAY PRN #30 supp.rect 02/06/17 Unknown Rx Famotidine [Pepcid] 20 mg PO BID #60 tablet 02/06/17 Unknown Rx Furosemide [Lasix] 20 mg PO QDAY #30 tablet 02/06/17 Unknown Rx Gabapentin [Neurontin] 100 mg PO TID #90 capsule 02/06/17 Unknown Rx Megestrol [Megace] 40 mg PO BID #60 tablet 02/06/17 Unknown Rx Metoprolol Xl [Metoprolol 12.5 mg PO BID #60 tablet 02/06/17 Unknown Rx SUCCINATE ER TAB] Allergies Allergy/AdvReac Type Severity Reaction Status Date / Time adhesive tape Allergy Mild Rash Verified 02/02/17 09:16 ED Review of Systems ROS: Stated complaint: FAILURE TO THRIVE Other details as noted in HPI Constitutional: denies: chills, fever Eyes: denies: eye pain, eye discharge, vision change ENT: denies: ear pain, throat pain Respiratory: denies: cough, shortness of breath, wheezing Cardiovascular: denies: chest pain, palpitations Endocrine: no symptoms reported Gastrointestinal: denies: abdominal pain, nausea, diarrhea Genitourinary: denies: urgency, dysuria, discharge Musculoskeletal: denies: back pain, joint swelling, arthralgia Skin: lesions (PT FEELS SHE GOT THESE WHILE IN THE HOSPITAL). denies: rash Neurological: denies: headache, weakness, paresthesias Psychiatric: denies: anxiety, depression Hematological/Lymphatic: denies: easy bleeding, easy bruising ED Past Medical Hx - Past Medical History Previous Medical History?: Yes Hx Hypertension: Yes (no meds, CHF) Hx Congestive Heart Failure: Yes Hx GERD: No Hx Seizures: No Hx HIV: No Additional medical history: hx of LYMPHOMA /CHEMO, DECUBITUS ULCERS - Surgical History Additional Surgical History: stomach surgery for weight loss in 1969 - Social History Smoking Status: Current Every Day Smoker Substance Use Type: None - Medications Home Medications: Home Medications Medication Instructions Recorded Confirmed Last Taken Type Acetaminophen [Acetaminophen TAB] 650 mg PO Q4H PRN #30 tablet 11/02/16 Unknown Rx Bisacodyl [Dulcolax suppos] 10 mg WA QDAY PRN #30 supp.rect 11/02/16 02/08/17 Unknown Rx Famotidine [Pepcid] 20 mg PO BID #60 tablet 11/02/16 02/08/17 2 Days Ago Rx ~12/08/16 Fluconazole [Diflucan TAB] 100 mg PO DAILY 02/01/17 02/08/17 Unknown History Potassium Chloride 20 meq PO DAILY 02/01/17 02/08/17 Unknown History Allopurinol [Zyloprim] 100 mg PO DAILY #30 tablet 02/06/17 02/08/17 Unknown Rx Apixaban [Eliquis] 10 mg PO Q12HR #60 tablet 02/06/17 02/08/17 Unknown Rx Aspirin [Aspirin BABY CHEW TAB] 81 mg PO QDAY #100 tab.chew 02/06/17 02/08/17 Unknown Rx AtorvaSTATin [Lipitor] 40 mg PO QHS #30 tablet 02/06/17 02/08/17 Unknown Rx Bisacodyl [Dulcolax suppos] 10 mg WA QDAY PRN #30 supp.rect 02/06/17 02/08/17 Unknown Rx Famotidine [Pepcid] 20 mg PO BID #60 tablet 02/06/17 02/08/17 Unknown Rx Furosemide [Lasix] 20 mg PO QDAY #30 tablet 02/06/17 02/08/17 Unknown Rx Gabapentin [Neurontin] 100 mg PO TID #90 capsule 02/06/17 02/08/17 Unknown Rx Megestrol [Megace] 40 mg PO BID #60 tablet 02/06/17 02/08/17 Unknown Rx Metoprolol Xl [Metoprolol 12.5 mg PO BID #60 tablet 02/06/17 02/08/17 Unknown Rx SUCCINATE ER TAB] ED Physical Exam - General Limitations: Physical Limitation (DOES NOT GET UP FROM BED) General appearance: alert, in no apparent distress - Head Head exam: Present: atraumatic, normocephalic - Eye Eye exam: Present: normal appearance, EOMI - ENT ENT exam: Present: mucous membranes moist - Neck Neck exam: Present: normal inspection, full ROM - Respiratory Respiratory exam: Present: normal lung sounds bilaterally. Absent: respiratory distress, wheezes, rales - Cardiovascular Cardiovascular Exam: Present: regular rate, normal rhythm, normal heart sounds. Absent: systolic murmur, diastolic murmur, rubs, gallop - GI/Abdominal GI/Abdominal exam: Present: soft, normal bowel sounds. Absent: distended, tenderness, guarding - Rectal Rectal exam: Present: other (STAGE 1 AND 2 DECUBITUS ULCERS) - External exam: Present: normal external exam, lesions (DSKIN BREAK DOWN INNER THIGHS) - Extremities Exam Extremities exam: Present: normal inspection, full ROM - Back Exam Back exam: Present: normal inspection, full ROM, other (DECUBITUS ULCERS) - Neurological Exam Neurological exam: Present: alert, oriented X3 - Psychiatric Psychiatric exam: Present: normal affect, normal mood - Skin Skin exam: Present: warm, dry, normal color, other (STAGE 1 AND 2 DECUBITUS ULCERS). Absent: rash ED Course Vital Signs 02/08/17 02/08/17 02/08/17 17:13 17:14 17:16 Temperature Pulse Rate Respiratory Rate Blood Pressure 150/81 150/81 150/81 Blood Pressure [Left] O2 Sat by Pulse 100 100 99 Oximetry 02/08/17 02/08/17 02/08/17 17:18 17:20 17:22 Temperature Pulse Rate Respiratory Rate Blood Pressure 150/81 150/81 150/81 Blood Pressure [Left] O2 Sat by Pulse 99 99 100 Oximetry 02/08/17 02/08/17 02/08/17 17:24 17:26 19:32 Temperature Pulse Rate 90 Respiratory Rate Blood Pressure 150/81 150/81 150/81 Blood Pressure [Left] O2 Sat by Pulse 100 81 L 90 Oximetry 02/08/17 02/08/17 02/08/17 19:34 19:37 19:38 Temperature Pulse Rate 94 H 95 H 91 H Respiratory 18 31 H 35 H Rate Blood Pressure 150/81 105/48 Blood Pressure [Left] O2 Sat by Pulse 99 99 Oximetry 02/08/17 02/08/17 02/08/17 19:41 19:42 19:43 Temperature 98.1 F 98.1 F Pulse Rate 90 87 85 Respiratory 28 H 27 H 29 H Rate Blood Pressure 105/48 105/48 105/48 Blood Pressure 105/48 [Left] O2 Sat by Pulse 99 99 99 Oximetry 02/08/17 02/08/17 02/08/17 19:45 19:47 19:49 Temperature Pulse Rate 93 H 96 H 90 Respiratory 22 23 29 H Rate Blood Pressure 101/46 150/81 150/81 Blood Pressure [Left] O2 Sat by Pulse 98 100 100 Oximetry 02/08/17 02/08/17 02/08/17 19:51 19:53 19:55 Temperature Pulse Rate 98 H 90 83 Respiratory 14 27 H 30 H Rate Blood Pressure 150/81 150/81 150/81 Blood Pressure [Left] O2 Sat by Pulse 100 100 100 Oximetry 02/08/17 02/08/17 02/08/17 19:57 19:59 20:00 Temperature Pulse Rate 94 H 96 H 90 Respiratory 21 33 H 20 Rate Blood Pressure 150/81 150/81 117/64 Blood Pressure [Left] O2 Sat by Pulse 100 99 97 Oximetry 02/08/17 02/08/17 02/08/17 20:02 20:03 20:05 Temperature Pulse Rate 89 103 H Respiratory 16 30 H 29 H Rate Blood Pressure 117/64 117/64 Blood Pressure [Left] O2 Sat by Pulse 100 100 99 Oximetry 02/08/17 02/08/17 02/08/17 20:07 20:09 20:11 Temperature Pulse Rate 95 H 90 89 Respiratory 12 30 H 19 Rate Blood Pressure 117/64 117/64 117/64 Blood Pressure [Left] O2 Sat by Pulse 99 99 100 Oximetry 02/08/17 02/08/17 02/08/17 20:13 20:15 20:16 Temperature Pulse Rate 112 H 90 84 Respiratory 25 H 20 26 H Rate Blood Pressure 117/64 117/64 112/49 Blood Pressure [Left] O2 Sat by Pulse 99 100 100 Oximetry 02/08/17 02/08/17 02/08/17 20:19 20:21 20:23 Temperature Pulse Rate 86 90 87 Respiratory 15 39 H 18 Rate Blood Pressure 112/49 112/49 112/49 Blood Pressure [Left] O2 Sat by Pulse 99 99 98 Oximetry 02/08/17 02/08/17 02/08/17 20:25 20:27 20:29 Temperature Pulse Rate 83 87 82 Respiratory 23 36 H 34 H Rate Blood Pressure 112/49 112/49 112/49 Blood Pressure [Left] O2 Sat by Pulse 99 78 L 79 L Oximetry 02/08/17 02/08/17 02/08/17 20:30 20:33 20:35 Temperature Pulse Rate 86 87 91 H Respiratory 25 H 33 H 30 H Rate Blood Pressure 104/50 104/50 104/50 Blood Pressure [Left] O2 Sat by Pulse 97 100 100 Oximetry 02/08/17 02/08/17 02/08/17 20:37 20:39 20:41 Temperature Pulse Rate 95 H 85 82 Respiratory 28 H 22 26 H Rate Blood Pressure 104/50 104/50 104/50 Blood Pressure [Left] O2 Sat by Pulse 100 100 100 Oximetry 02/08/17 02/08/17 02/08/17 20:45 20:51 20:55 Temperature Pulse Rate 89 82 93 H Respiratory 21 27 H 33 H Rate Blood Pressure 109/52 109/52 109/52 Blood Pressure [Left] O2 Sat by Pulse 84 100 100 Oximetry 02/08/17 02/08/17 02/08/17 21:01 21:05 21:11 Temperature Pulse Rate 69 91 H 91 H Respiratory 24 21 34 H Rate Blood Pressure 104/43 104/43 104/43 Blood Pressure [Left] O2 Sat by Pulse 99 100 100 Oximetry 02/08/17 02/08/17 02/08/17 21:15 21:21 21:25 Temperature Pulse Rate 81 80 80 Respiratory 24 19 20 Rate Blood Pressure 111/47 111/47 111/47 Blood Pressure [Left] O2 Sat by Pulse 100 100 100 Oximetry 02/08/17 02/08/17 02/08/17 21:30 21:35 21:41 Temperature Pulse Rate 78 81 82 Respiratory 21 23 20 Rate Blood Pressure 109/51 109/51 109/51 Blood Pressure [Left] O2 Sat by Pulse 100 100 100 Oximetry 02/08/17 02/08/17 02/08/17 21:45 21:51 21:55 Temperature Pulse Rate 89 85 87 Respiratory 20 15 26 H Rate Blood Pressure 109/51 116/50 116/50 Blood Pressure [Left] O2 Sat by Pulse 100 100 100 Oximetry 02/08/17 02/08/17 02/08/17 22:01 22:05 22:11 Temperature Pulse Rate 85 84 78 Respiratory 19 22 20 Rate Blood Pressure 125/47 125/47 125/47 Blood Pressure [Left] O2 Sat by Pulse 99 100 100 Oximetry 02/08/17 02/08/17 02/08/17 22:15 22:21 22:25 Temperature Pulse Rate 87 83 83 Respiratory 24 18 28 H Rate Blood Pressure 102/45 102/45 102/45 Blood Pressure [Left] O2 Sat by Pulse 98 100 100 Oximetry 02/08/17 02/08/17 02/08/17 22:30 22:35 22:41 Temperature Pulse Rate 96 H 85 90 Respiratory 24 8 L 17 Rate Blood Pressure 110/47 110/47 110/47 Blood Pressure [Left] O2 Sat by Pulse 98 99 100 Oximetry 02/08/17 02/08/17 02/08/17 22:45 22:51 22:55 Temperature Pulse Rate 87 82 85 Respiratory 13 17 25 H Rate Blood Pressure 110/47 97/43 97/43 Blood Pressure [Left] O2 Sat by Pulse 100 99 100 Oximetry 02/08/17 02/08/17 02/08/17 23:00 23:05 23:11 Temperature Pulse Rate 86 91 H 91 H Respiratory 19 30 H 10 L Rate Blood Pressure 98/41 98/41 98/41 Blood Pressure [Left] O2 Sat by Pulse 99 100 100 Oximetry 02/08/17 02/08/17 02/08/17 23:15 23:21 23:25 Temperature Pulse Rate 87 88 87 Respiratory 20 21 23 Rate Blood Pressure 101/42 101/42 101/42 Blood Pressure [Left] O2 Sat by Pulse 99 100 100 Oximetry 02/08/17 02/08/17 02/08/17 23:31 23:35 23:41 Temperature Pulse Rate 98 H 96 H 93 H Respiratory 14 20 26 H Rate Blood Pressure 102/41 98/41 98/41 Blood Pressure [Left] O2 Sat by Pulse 100 100 99 Oximetry - Lab Data Result diagrams: 02/08/17 20:42 02/08/17 20:42 Lab Results 02/08/17 02/08/17 02/08/17 Range/Units 19:25 20:14 20:42 WBC (4.5-11.0) K/mm3 RBC (3.65-5.03) M/mm3 Hgb (10.1-14.3) gm/dl Hct (30.3-42.9) % MCV (79-97) fl MCH (28-32) pg MCHC (30-34) % RDW (13.2-15.2) % Plt Count (140-440) K/mm3 Lymph % (Auto) (13.4-35.0) % [place] % (Auto) (0.0-7.3) % Eos % (Auto) (0.0-4.3) % Baso % (Auto) (0.0-1.8) % Lymph # (1.2-5.4) K/mm3 [place] # (0.0-0.8) K/mm3 Eos # (0.0-0.4) K/mm3 Baso # (0.0-0.1) K/mm3 Seg Neutrophils % (40.0-70.0) % Seg Neutrophils # (1.8-7.7) K/mm3 Sodium (137-145) mmol/L Potassium (3.6-5.0) mmol/L Chloride (98-107) mmol/L Carbon Dioxide (22-30) mmol/L Anion Gap mmol/L BUN (7-17) mg/dL Creatinine (0.7-1.2) mg/dL Estimated GFR ml/min BUN/Creatinine Ratio % Glucose (65-100) mg/dL POC Glucose 57 L 141 H (70-105) Calcium (8.4-10.2) mg/dL Total Creatine Kinase (30-135) units/L CK-MB (CK-2) (0.0-4.0) ng/mL CK-MB (CK-2) Rel Index (0-4) Troponin T (0.00-0.029) ng/mL Urine Color Yellow (Yellow) Urine Turbidity Clear (Clear) Urine pH 5.0 (5.0-7.0) Ur Specific [place] 1.011 (1.003-1.030) Urine Protein <15 mg/dl (Negative) mg/dL Urine Glucose (UA) Neg (Negative) mg/dL Urine Ketones Tr (Negative) mg/dL Urine Blood Neg (Negative) Urine Nitrite Neg (Negative) Urine Bilirubin Neg (Negative) Urine Urobilinogen 4.0 (<2.0) mg/dL Ur Leukocyte Esterase Neg (Negative) Urine WBC (Auto) 2.0 (0.0-6.0) /HPF Urine RBC (Auto) < 1.0 (0.0-6.0) /HPF U Epithel Cells (Auto) 1.0 (0-13.0) /HPF Urine Mucus Few /HPF 02/08/17 02/08/17 02/08/17 Range/Units 20:42 20:42 20:42 WBC 8.8 (4.5-11.0) K/mm3 RBC 2.55 L (3.65-5.03) M/mm3 Hgb 7.8 L (10.1-14.3) gm/dl Hct 24.5 L (30.3-42.9) % MCV 96 (79-97) fl MCH 31 (28-32) pg MCHC 32 (30-34) % RDW 17.7 H (13.2-15.2) % Plt Count 247 (140-440) K/mm3 Lymph % (Auto) 18.0 (13.4-35.0) % [place] % (Auto) 9.7 H (0.0-7.3) % Eos % (Auto) 0.1 (0.0-4.3) % Baso % (Auto) 1.1 (0.0-1.8) % Lymph # 1.6 (1.2-5.4) K/mm3 [place] # 0.8 (0.0-0.8) K/mm3 Eos # 0.0 (0.0-0.4) K/mm3 Baso # 0.1 (0.0-0.1) K/mm3 Seg Neutrophils % 71.1 H (40.0-70.0) % Seg Neutrophils # 6.2 (1.8-7.7) K/mm3 Sodium 138 (137-145) mmol/L Potassium 3.5 L D (3.6-5.0) mmol/L Chloride 100.5 (98-107) mmol/L Carbon Dioxide 28 (22-30) mmol/L Anion Gap 13 mmol/L BUN 11 (7-17) mg/dL Creatinine 0.8 (0.7-1.2) mg/dL Estimated GFR > 60 ml/min BUN/Creatinine Ratio 14 % Glucose 106 H (65-100) mg/dL POC Glucose (70-105) Calcium 7.9 L (8.4-10.2) mg/dL Total Creatine Kinase 33 (30-135) units/L CK-MB (CK-2) 2.0 (0.0-4.0) ng/mL CK-MB (CK-2) Rel Index 6.0 H (0-4) Troponin T 0.093 H (0.00-0.029) ng/mL Urine Color (Yellow) Urine Turbidity (Clear) Urine pH (5.0-7.0) Ur Specific [place] (1.003-1.030) Urine Protein (Negative) mg/dL Urine Glucose (UA) (Negative) mg/dL Urine Ketones (Negative) mg/dL Urine Blood (Negative) Urine Nitrite (Negative) Urine Bilirubin (Negative) Urine Urobilinogen (<2.0) mg/dL Ur Leukocyte Esterase (Negative) Urine WBC (Auto) (0.0-6.0) /HPF Urine RBC (Auto) (0.0-6.0) /HPF U Epithel Cells (Auto) (0-13.0) /HPF Urine Mucus /HPF 02/08/17 02/08/17 Range/Units 22:24 23:56 WBC (4.5-11.0) K/mm3 RBC (3.65-5.03) M/mm3 Hgb (10.1-14.3) gm/dl Hct (30.3-42.9) % MCV (79-97) fl MCH (28-32) pg MCHC (30-34) % RDW (13.2-15.2) % Plt Count (140-440) K/mm3 Lymph % (Auto) (13.4-35.0) % [place] % (Auto) (0.0-7.3) % Eos % (Auto) (0.0-4.3) % Baso % (Auto) (0.0-1.8) % Lymph # (1.2-5.4) K/mm3 [place] # (0.0-0.8) K/mm3 Eos # (0.0-0.4) K/mm3 Baso # (0.0-0.1) K/mm3 Seg Neutrophils % (40.0-70.0) % Seg Neutrophils # (1.8-7.7) K/mm3 Sodium (137-145) mmol/L Potassium (3.6-5.0) mmol/L Chloride (98-107) mmol/L Carbon Dioxide (22-30) mmol/L Anion Gap mmol/L BUN (7-17) mg/dL Creatinine (0.7-1.2) mg/dL Estimated GFR ml/min BUN/Creatinine Ratio % Glucose (65-100) mg/dL POC Glucose 96 117 H (70-105) Calcium (8.4-10.2) mg/dL Total Creatine Kinase (30-135) units/L CK-MB (CK-2) (0.0-4.0) ng/mL CK-MB (CK-2) Rel Index (0-4) Troponin T (0.00-0.029) ng/mL Urine Color (Yellow) Urine Turbidity (Clear) Urine pH (5.0-7.0) Ur Specific [place] (1.003-1.030) Urine Protein (Negative) mg/dL Urine Glucose (UA) (Negative) mg/dL Urine Ketones (Negative) mg/dL Urine Blood (Negative) Urine Nitrite (Negative) Urine Bilirubin (Negative) Urine Urobilinogen (<2.0) mg/dL Ur Leukocyte Esterase (Negative) Urine WBC (Auto) (0.0-6.0) /HPF Urine RBC (Auto) (0.0-6.0) /HPF U Epithel Cells (Auto) (0-13.0) /HPF Urine Mucus /HPF - EKG Data -: EKG Interpreted by Me EKG shows normal: sinus rhythm, axis Rate: normal (POOR R WAVE PROGRESSION) Critical care attestation.: If time is entered above; I have spent that time in minutes in the direct care of this critically ill patient, excluding procedure time. ED Disposition Clinical Impression: NSTEMI (non-ST elevated myocardial infarction), Hypoglycemia Altered mental status Qualifiers: Altered mental status type: transient alteration of awareness Qualified Code(s) : R40.4 - Transient alteration of awareness Decubitus skin ulcer Qualifiers: Pressure ulcer location: buttock Pressure ulcer stage: stage 2 Laterality: unspecified laterality Qualified Code(s): L89.302 - Pressure ulcer of unspecified buttock, stage 2 Hypotension Qualifiers: Hypotension type: unspecified hypotension type Qualified Code(s): I95.9 - Hypotension, unspecified Disposition: -09 OP ADMIT IP TO THIS HOSP Is pt being admited?: Yes Does the pt Need Aspirin: No Condition: Stable Referrals: PRIMARY CARE,MD [Primary Care Provider] - 3-5 Days Time of Disposition: 00:09 (CASE REVIEWED WITH DR DANNY HONEYCUTT AND SHE WILL SEE AND ADMIT THE PT)
[2017-02-08 21:00] LABS: Basophils % (Auto) 1.1 % (0.0-1.8); Eosinophils % (Auto) 0.1 % (0.0-4.3); Hematocrit 24.5 % (30.3-42.9); Hemoglobin 7.8 gm/dl (10.1-14.3); Mean Corpuscular HGB Conc 32 % (30-34); Mean Corpuscular Hemoglobin 31 pg (28-32); Mean Corpuscular Volume 96 fl (79-97); Platelet Count 247 K/mm3 (140-440); Red Blood Count 2.55 M/mm3 (3.65-5.03); Red Cell Distribution Width 17.7 % (13.2-15.2); White Blood Count 8.8 K/mm3 (4.5-11.0)
[2017-02-08 21:03] LABS: Bilirubin,Urine NEG (Negative); Blood,Urine NEG (Negative); Ketones,Urine TR mg/dL (Negative); Leukocyte Esterase,Urine NEG (Negative); Mucus,Urine FEW /HPF; Nitrite,Urine NEG (Negative); Protein,Urine <15 mg/dL mg/dL (Negative); RBC,Urine < 1.0 /HPF (0.0-6.0)
[2017-02-08 21:12] LABS: Anion Gap 13 mmol/L; BUN/Creatinine Ratio 14; Blood Urea Nitrogen 11 mg/dL (7-17); Calcium 7.9 mg/dL (8.4-10.2); Carbon Dioxide 28 mmol/L (22-30); Chloride 100.5 mmol/L (98-107); Glucose 106 mg/dL (65-100); Potassium 3.5 mmol/L (3.6-5.0); Sodium 138 mmol/L (137-145)
[2017-02-08] MEDS: D10W 1,000 ML IV SCH (22:36)
[2017-02-08] MEDS ORDERED: ASPIRIN PO ONE (23:56)
[2017-02-09] MEDS ORDERED: TYLENOL PO PRN (00:37)
[2017-02-09] MEDS ORDERED: ZOFRAN IV PRN (00:37)
[2017-02-09] MEDS ORDERED: DULCOLAX PR PRN (00:37)
[2017-02-09] MEDS ORDERED: MILK OF MAGNESIA PO PRN (00:37)
--- NOTE | 2017-02-09 00:40 | History and Physical Report ---
History of Present Illness Date of examination: 02/09/17 History of present illness: 71-year-old. History of lymphoma and hypertension, CHF, was brought to the emergency room she was going in and out of consciousness. EMS was called her fingersticks was low. Denies she was given D50, fingerstick went to 149 but quickly dropped down again 2, she was placed on D10 in the emergency room. Patient has not even over the last 4 days, has no appetite, currently on chemotherapy. Patient on appetite stimulant Review Of Systems: Constitutional: no weight loss Ears, eyes, nose, mouth and throat: no nasal congestion, no nasal discharge, no sinus pressure, blurry vision, diplopia Neck: No neck pain or rigidity. Cardiovascular: no chest pain, orthopnea, palpitations Respiratory: No shortness of breath, cough Gastrointestinal: abdominal pain, hematochezia Genitourinary : no dysuria, frequency , hematuria Musculoskeletal: no muscle ache Integumentary: no rash, no pruritis Neurological: no parathesias, focal weakness Endocrine: no cold or heat intolerance, no polyuria or polydipsia Hematologic/Lymphatic: no easy bruising, no easy bleeding, no gland swelling Allergic/Immunologic: no urticaria, no angioedema. PAST MEDICAL HISTORY:ymphoma and hypertension, CHF PAST SURGICAL HISTORY: Port placement FAMILY HISTORY: hypertension SOCIAL HISTORY: Smoked half pack a day, no alcohol, drugs Medications and Allergies Allergies Allergy/AdvReac Type Severity Reaction Status Date / Time adhesive tape Allergy Mild Rash Verified 02/02/17 09:16 Home Medications Medication Instructions Recorded Confirmed Last Taken Type Acetaminophen [Acetaminophen TAB] 650 mg PO Q4H PRN #30 tablet 11/02/16 Unknown Rx Famotidine [Pepcid] 20 mg PO BID #60 tablet 11/02/16 02/08/17 2 Days Ago Rx ~12/08/16 Allopurinol [Zyloprim] 100 mg PO DAILY #30 tablet 02/06/17 02/08/17 Unknown Rx Aspirin [Aspirin BABY CHEW TAB] 81 mg PO QDAY #100 tab.chew 02/06/17 02/08/17 Unknown Rx AtorvaSTATin [Lipitor] 40 mg PO QHS #30 tablet 02/06/17 02/08/17 Unknown Rx Gabapentin [Neurontin] 100 mg PO TID #90 capsule 02/06/17 02/08/17 Unknown Rx Megestrol [Megace] 40 mg PO BID #60 tablet 02/06/17 02/08/17 Unknown Rx Active Meds: Active Medications Dextrose (D10w) 1,000 mls @ 30 mls/hr IV DIRECT SHAWN Last Admin: 02/08/17 22:36 Dose: 75 mls/hr Exam - Physical Exam Narrative exam: Gen. appearance: Patient lying in bed in no acute distress HEENT: Normocephalic/atraumatic, pupils equal round reactive to light, extra alkaline movement intact, no scleral icterus, no JVD or thyromegaly or nodule, neck is supple, mucous membrane moist, no erythema or exudate Heart: S1-S2, regular rate and rhythm Lungs: Clear to auscultation bilateral breathing comfortable Abdomen: Positive bowel sounds, nontender, nondistended, no organomegaly Extremities: No edema, cyanosis, clubbing Neuro:: Oriented 3 , cranial nerves II-12 intact, speech, motor intact Skin: No rash, nodules, warm dry - Constitutional Vitals: Temp Pulse Resp BP Pulse Ox 98.1 F 93 H 26 H 98/41 99 02/08/17 19:42 02/08/17 23:41 02/08/17 23:41 02/08/17 23:41 02/08/17 23:41 Results - Labs CBC & Chem 7: 02/11/17 09:12 02/11/17 09:12 Labs: Abnormal lab results 02/08/17 02/08/17 02/08/17 Range/Units 19:25 20:14 20:42 RBC 2.55 L (3.65-5.03) M/mm3 Hgb 7.8 L (10.1-14.3) gm/dl Hct 24.5 L (30.3-42.9) % RDW 17.7 H (13.2-15.2) % [place] % (Auto) 9.7 H (0.0-7.3) % Seg Neutrophils % 71.1 H (40.0-70.0) % Potassium (3.6-5.0) mmol/L Glucose (65-100) mg/dL POC Glucose 57 L 141 H (70-105) Calcium (8.4-10.2) mg/dL CK-MB (CK-2) Rel Index (0-4) Troponin T (0.00-0.029) ng/mL 02/08/17 02/08/17 02/08/17 Range/Units 20:42 20:42 23:56 RBC (3.65-5.03) M/mm3 Hgb (10.1-14.3) gm/dl Hct (30.3-42.9) % RDW (13.2-15.2) % [place] % (Auto) (0.0-7.3) % Seg Neutrophils % (40.0-70.0) % Potassium 3.5 L D (3.6-5.0) mmol/L Glucose 106 H (65-100) mg/dL POC Glucose 117 H (70-105) Calcium 7.9 L (8.4-10.2) mg/dL CK-MB (CK-2) Rel Index 6.0 H (0-4) Troponin T 0.093 H (0.00-0.029) ng/mL Assessment and Plan Assessment Failure to thrive Hypoglycemia Lymphoma CHF, stable Hypertension Plan Admit to medicine Continue D10, check fingersticks and continue appropriate outpatient medication Add ensure with meals
--- NOTE | 2017-02-09 00:41 | XRay Report ---
FINAL REPORT EXAM: XR CHEST 1V AP HISTORY: ?PNEUMONIA VS CHF TECHNIQUE: A portable semi-erect view of the chest was obtained. There are no previous chest radiographs available for comparison. FINDINGS: There is a large area of consolidation in the upper 2/3 of the right lung compatible with the patient's no mass. There is a small right-sided effusion. The left lung is clear. The lungs are not congested. The heart size is normal. There is a Port-A-Cath catheter placed with the tip in the superior vena cava. The bones and soft tissues otherwise do not show any acute changes. 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 No evidence of congestion or CHF.
[2017-02-09 04:18] LABS: Creatine Kinase MB 1.7 ng/mL (0.0-4.0)
[2017-02-09] MEDS ORDERED: D50W (25GM) Syringe IV PRN (06:20)
[2017-02-09] MEDS ORDERED: D50W (25GM) Vial IV PRN (06:23)
[2017-02-09 06:56] LABS: Creatine Kinase MB 1.6 ng/mL (0.0-4.0)
[2017-02-09] MEDS ORDERED: LOVENOX SUB-Q SCH (10:00)
[2017-02-09] MEDS: LOVENOX SUB-Q SCH (10:34)
--- NOTE | 2017-02-09 16:18 | Event Note ---
Date: 02/09/17 Pt was admitted today. I have seen and examined the patient no new complait. Will continue with present management and f/u with results of ordered test
[2017-02-10 05:43] LABS: Basophils % (Auto) 0.7 % (0.0-1.8); Eosinophils % (Auto) 0.6 % (0.0-4.3); Hematocrit 23.6 % (30.3-42.9); Hemoglobin 7.5 gm/dl (10.1-14.3); Mean Corpuscular HGB Conc 32 % (30-34); Mean Corpuscular Hemoglobin 30 pg (28-32); Mean Corpuscular Volume 96 fl (79-97); Platelet Count 195 K/mm3 (140-440); Red Blood Count 2.46 M/mm3 (3.65-5.03); Red Cell Distribution Width 17.3 % (13.2-15.2); White Blood Count 6.7 K/mm3 (4.5-11.0)
[2017-02-10 06:01] LABS: Anion Gap 10 mmol/L; BUN/Creatinine Ratio 15; Blood Urea Nitrogen 9 mg/dL (7-17); Calcium 7.7 mg/dL (8.4-10.2); Carbon Dioxide 31 mmol/L (22-30); Glucose 115 mg/dL (65-100); Potassium 3.2 mmol/L (3.6-5.0); Sodium 137 mmol/L (137-145)
[2017-02-10] MEDS: D10W 1,000 ML IV SCH (06:48)
--- NOTE | 2017-02-10 09:21 | Progress Note ---
Assessment and Plan Assessment and plan: --Hypokalemia; oral potassium chloride, monitor levels --Failure to thrive: nutrition supplements, Megace, encourage oral nutrition Patient requests PEG placement, will discuss with the family and consult GI if needed --Hypoglycemia: Poor nutrition, continue D10 --Non-Hodgkin's lymphoma-on chemotherapy, follows with hematology oncologist --Anemia; closely monitor, transfuse as needed --Diastolic CHF, stable --Hypotension; hold antihypertensive medications, IV fluids --DVT prophylaxis; SCD Closely monitor the patient and discussed management as needed History Interval history: Patient seen and examined, medical records reviewed Admitted with failure to thrive, poor oral intake Patient looks chronically ill, reports has no appetite Alert and awake responding appropriately Hospitalist Physical - Constitutional Vitals: Temp Pulse Resp BP Pulse Ox 98.0 F 79 18 89/48 93 02/10/17 04:29 02/10/17 04:29 02/10/17 04:29 02/10/17 04:29 02/10/17 04:29 General appearance: Present: no acute distress, cachectic, other (chronically ill looking) - EENT Eyes: Present: PERRL, EOM intact - Neck Neck: Present: supple, normal ROM - Respiratory Respiratory effort: normal Respiratory: bilateral: diminished, negative: rales, rhonchi, wheezing - Cardiovascular Rhythm: regular Heart Sounds: Present: S1 & S2 - Extremities Extremities: no ischemia, No edema - Abdominal General gastrointestinal: soft, non-tender, non-distended - Integumentary Integumentary: Present: clear, warm - Psychiatric Psychiatric: appropriate mood/affect, cooperative - Neurologic Neurologic: CNII-XII intact, moves all extremities Results - Labs CBC & Chem 7: 02/10/17 05:16 02/10/17 05:16 Labs: Laboratory Last Values WBC 6.7 K/mm3 (4.5-11.0) 02/10/17 05:16 RBC 2.46 M/mm3 (3.65-5.03) L 02/10/17 05:16 Hgb 7.5 gm/dl (10.1-14.3) L 02/10/17 05:16 Hct 23.6 % (30.3-42.9) L 02/10/17 05:16 MCV 96 fl (79-97) 02/10/17 05:16 MCH 30 pg (28-32) 02/10/17 05:16 MCHC 32 % (30-34) 02/10/17 05:16 RDW 17.3 % (13.2-15.2) H 02/10/17 05:16 Plt Count 195 K/mm3 (140-440) 02/10/17 05:16 Lymph % (Auto) 24.3 % (13.4-35.0) 02/10/17 05:16 [place] % (Auto) 11.1 % (0.0-7.3) H 02/10/17 05:16 Eos % (Auto) 0.6 % (0.0-4.3) 02/10/17 05:16 Baso % (Auto) 0.7 % (0.0-1.8) 02/10/17 05:16 Lymph # 1.6 K/mm3 (1.2-5.4) 02/10/17 05:16 [place] # 0.7 K/mm3 (0.0-0.8) 02/10/17 05:16 Eos # 0.0 K/mm3 (0.0-0.4) 02/10/17 05:16 Baso # 0.0 K/mm3 (0.0-0.1) 02/10/17 05:16 Seg Neutrophils % 63.3 % (40.0-70.0) 02/10/17 05:16 Seg Neutrophils # 4.3 K/mm3 (1.8-7.7) 02/10/17 05:16 Sodium 137 mmol/L (137-145) 02/10/17 05:16 Potassium 3.2 mmol/L (3.6-5.0) L 02/10/17 05:16 Chloride 99.0 mmol/L (98-107) 02/10/17 05:16 Carbon Dioxide 31 mmol/L (22-30) H 02/10/17 05:16 Anion Gap 10 mmol/L 02/10/17 05:16 BUN 9 mg/dL (7-17) 02/10/17 05:16 Creatinine 0.6 mg/dL (0.7-1.2) L 02/10/17 05:16 Estimated GFR > 60 ml/min 02/10/17 05:16 BUN/Creatinine Ratio 15 % 02/10/17 05:16 Glucose 115 mg/dL (65-100) H 02/10/17 05:16 POC Glucose 131 (70-105) H 02/10/17 09:08 Calcium 7.7 mg/dL (8.4-10.2) L 02/10/17 05:16 Total Creatine Kinase 27 units/L (30-135) L 02/09/17 06:20 CK-MB (CK-2) 1.6 ng/mL (0.0-4.0) 02/09/17 06:20 CK-MB (CK-2) Rel Index 5.9 (0-4) H 02/09/17 06:20 Troponin T 0.089 ng/mL (0.00-0.029) H 02/09/17 06:20 NT-Pro-B Natriuret Pep 696.3 pg/mL (0-900) 02/09/17 00:11 Triglycerides 81 mg/dL (2-149) 02/09/17 03:09 Cholesterol 96 mg/dL (50-199) 02/09/17 03:09 LDL Cholesterol Direct 65 mg/dL (50-130) 02/09/17 03:09 HDL Cholesterol 15 mg/dL (40-59) L 02/09/17 03:09 Cholesterol/HDL Ratio 6.40 % 02/09/17 03:09 Urine Color Yellow (Yellow) 02/08/17 20:42 Urine Turbidity Clear (Clear) 02/08/17 20:42 Urine pH 5.0 (5.0-7.0) 02/08/17 20:42 Ur Specific [place] 1.011 (1.003-1.030) 02/08/17 20:42 Urine Protein <15 mg/dl mg/dL (Negative) 02/08/17 20:42 Urine Glucose (UA) Neg mg/dL (Negative) 02/08/17 20:42 Urine Ketones Tr mg/dL (Negative) 02/08/17 20:42 Urine Blood Neg (Negative) 02/08/17 20:42 Urine Nitrite Neg (Negative) 02/08/17 20:42 Urine Bilirubin Neg (Negative) 02/08/17 20:42 Urine Urobilinogen 4.0 mg/dL (<2.0) 02/08/17 20:42 Ur Leukocyte Esterase Neg (Negative) 02/08/17 20:42 Urine WBC (Auto) 2.0 /HPF (0.0-6.0) 02/08/17 20:42 Urine RBC (Auto) < 1.0 /HPF (0.0-6.0) 02/08/17 20:42 U Epithel Cells (Auto) 1.0 /HPF (0-13.0) 02/08/17 20:42 Urine Mucus Few /HPF 02/08/17 20:42
[2017-02-10] MEDS: K-DUR PO ONE ×2 (10:01→10:10)
[2017-02-10] MEDS: BABY ASPIRIN PO SCH (10:01)
[2017-02-10] MEDS: LOVENOX SUB-Q SCH (10:01)
[2017-02-10] MEDS: ZYLOPRIM PO SCH (10:01)
[2017-02-10] MEDS ORDERED: POTASSIUM CHLORIDE FEEDTUBE ONE (14:00)
[2017-02-10] MEDS: MEGACE PO SCH ×2 (14:54→21:56)
[2017-02-10] MEDS: NEURONTIN PO SCH ×2 (14:55→21:56)
[2017-02-10] MEDS: COLACE PO SCH (23:11)
--- NOTE | 2017-02-11 09:25 | Progress Note ---
Assessment and Plan Assessment and plan: --Failure to thrive: nutrition supplements, Megace, encourage oral nutrition Patient requests PEG placement, she was extensively evaluated by surgery during her previous admission Unable to place PEG , in view of bariatric surgery in the past . Encourage increased oral nutrition , no diet restriction , patient can take any outside food of her choice . --Hypokalemia; oral potassium chloride, monitor levels --Hypoglycemia: Poor nutrition, proved --Non-Hodgkin's lymphoma-on chemotherapy,d/w hematology oncologist --Anemia; closely monitor, transfuse as needed --Diastolic CHF, stable --Hypotension; hold antihypertensive medications, IV fluids --DVT prophylaxis; SCD possible DC home tomorrow if stable History Interval history: Patient seen and examined medical records reviewed Patient reports she doesn't have an appetite Advised her to eat anything she wants, family can get from food from outside No new complaints Hospitalist Physical - Constitutional Vitals: Temp Pulse Resp BP Pulse Ox 98.7 F 67 18 105/46 94 02/11/17 08:04 02/11/17 08:04 02/11/17 08:04 02/11/17 08:04 02/11/17 08:04 General appearance: Present: no acute distress, cachectic, other (chronically ill looking) - EENT Eyes: Present: PERRL, EOM intact - Neck Neck: Present: supple, normal ROM - Respiratory Respiratory effort: normal Respiratory: bilateral: diminished, negative: rales, rhonchi, wheezing - Cardiovascular Rhythm: regular Heart Sounds: Present: S1 & S2 - Extremities Extremities: no ischemia, No edema Peripheral Pulses: within normal limits - Abdominal General gastrointestinal: soft, non-tender, non-distended, normal bowel sounds - Integumentary Integumentary: Present: clear, warm - Psychiatric Psychiatric: appropriate mood/affect, cooperative - Neurologic Neurologic: CNII-XII intact, moves all extremities Results - Labs CBC & Chem 7: 02/11/17 09:12 02/11/17 09:12 Labs: Laboratory Last Values WBC 6.7 K/mm3 (4.5-11.0) 02/10/17 05:16 RBC 2.46 M/mm3 (3.65-5.03) L 02/10/17 05:16 Hgb 7.5 gm/dl (10.1-14.3) L 02/10/17 05:16 Hct 23.6 % (30.3-42.9) L 02/10/17 05:16 MCV 96 fl (79-97) 02/10/17 05:16 MCH 30 pg (28-32) 02/10/17 05:16 MCHC 32 % (30-34) 02/10/17 05:16 RDW 17.3 % (13.2-15.2) H 02/10/17 05:16 Plt Count 195 K/mm3 (140-440) 02/10/17 05:16 Lymph % (Auto) 24.3 % (13.4-35.0) 02/10/17 05:16 [place] % (Auto) 11.1 % (0.0-7.3) H 02/10/17 05:16 Eos % (Auto) 0.6 % (0.0-4.3) 02/10/17 05:16 Baso % (Auto) 0.7 % (0.0-1.8) 02/10/17 05:16 Lymph # 1.6 K/mm3 (1.2-5.4) 02/10/17 05:16 [place] # 0.7 K/mm3 (0.0-0.8) 02/10/17 05:16 Eos # 0.0 K/mm3 (0.0-0.4) 02/10/17 05:16 Baso # 0.0 K/mm3 (0.0-0.1) 02/10/17 05:16 Seg Neutrophils % 63.3 % (40.0-70.0) 02/10/17 05:16 Seg Neutrophils # 4.3 K/mm3 (1.8-7.7) 02/10/17 05:16 Sodium 137 mmol/L (137-145) 02/10/17 05:16 Potassium 3.2 mmol/L (3.6-5.0) L 02/10/17 05:16 Chloride 99.0 mmol/L (98-107) 02/10/17 05:16 Carbon Dioxide 31 mmol/L (22-30) H 02/10/17 05:16 Anion Gap 10 mmol/L 02/10/17 05:16 BUN 9 mg/dL (7-17) 02/10/17 05:16 Creatinine 0.6 mg/dL (0.7-1.2) L 02/10/17 05:16 Estimated GFR > 60 ml/min 02/10/17 05:16 BUN/Creatinine Ratio 15 % 02/10/17 05:16 Glucose 115 mg/dL (65-100) H 02/10/17 05:16 POC Glucose 125 (70-105) H 02/10/17 21:34 Calcium 7.7 mg/dL (8.4-10.2) L 02/10/17 05:16 Total Creatine Kinase 27 units/L (30-135) L 02/09/17 06:20 CK-MB (CK-2) 1.6 ng/mL (0.0-4.0) 02/09/17 06:20 CK-MB (CK-2) Rel Index 5.9 (0-4) H 02/09/17 06:20 Troponin T 0.089 ng/mL (0.00-0.029) H 02/09/17 06:20 NT-Pro-B Natriuret Pep 696.3 pg/mL (0-900) 02/09/17 00:11 Triglycerides 81 mg/dL (2-149) 02/09/17 03:09 Cholesterol 96 mg/dL (50-199) 02/09/17 03:09 LDL Cholesterol Direct 65 mg/dL (50-130) 02/09/17 03:09 HDL Cholesterol 15 mg/dL (40-59) L 02/09/17 03:09 Cholesterol/HDL Ratio 6.40 % 02/09/17 03:09 Urine Color Yellow (Yellow) 02/08/17 20:42 Urine Turbidity Clear (Clear) 02/08/17 20:42 Urine pH 5.0 (5.0-7.0) 02/08/17 20:42 Ur Specific [place] 1.011 (1.003-1.030) 02/08/17 20:42 Urine Protein <15 mg/dl mg/dL (Negative) 02/08/17 20:42 Urine Glucose (UA) Neg mg/dL (Negative) 02/08/17 20:42 Urine Ketones Tr mg/dL (Negative) 02/08/17 20:42 Urine Blood Neg (Negative) 02/08/17 20:42 Urine Nitrite Neg (Negative) 02/08/17 20:42 Urine Bilirubin Neg (Negative) 02/08/17 20:42 Urine Urobilinogen 4.0 mg/dL (<2.0) 02/08/17 20:42 Ur Leukocyte Esterase Neg (Negative) 02/08/17 20:42 Urine WBC (Auto) 2.0 /HPF (0.0-6.0) 02/08/17 20:42 Urine RBC (Auto) < 1.0 /HPF (0.0-6.0) 02/08/17 20:42 U Epithel Cells (Auto) 1.0 /HPF (0-13.0) 02/08/17 20:42 Urine Mucus Few /HPF 02/08/17 20:42
[2017-02-11 09:29] LABS: Hematocrit 25.5 % (30.3-42.9); Hemoglobin 8.4 gm/dl (10.1-14.3); Mean Corpuscular HGB Conc 33 % (30-34); Mean Corpuscular Hemoglobin 32 pg (28-32); Mean Corpuscular Volume 97 fl (79-97); Platelet Count 197 K/mm3 (140-440); Red Blood Count 2.64 M/mm3 (3.65-5.03); Red Cell Distribution Width 17.1 % (13.2-15.2); White Blood Count 7.8 K/mm3 (4.5-11.0)
--- NOTE | 2017-02-11 09:40 | Hem/Onc Progress Note ---
Assessment and Plan At this time, we will make her diet regular so she is able to eat more foods that she thinks are more palatable. In the meantime also get nutrition consult. If surgery is not possible or difficulty, and she is not eating, may consider TPN or PPN. Discussed with Dr. staton Subjective Date of service: 02/11/17 Interval history: Known to me. History of non-Hodgkin's lymphoma. Patient had been on chemotherapy and was admitted last week with failure to thrive. She is now readmitted for weakness and failure to thrive. Patient's hemoglobin was found to be 7.5. Her potassium was 3.2. Patient states she has loss of appetite. She has had history of gastric bypass surgery in the 70s and she states that she is not able to eat a big meal anyway. He was evaluated for Gtube/G feeding but because of her previous surgery, have care management was suggested initially by surgery Objective - Constitutional Vitals: Last Vital Signs Temp 98.7 F 02/11/17 08:04 Pulse 67 02/11/17 08:04 Resp 18 02/11/17 08:04 BP 105/46 02/11/17 08:04 Pulse Ox 94 02/11/17 08:04 General appearance: mild distress Performance status: 4-completely disabled - Neck Neck: supple - Respiratory Respiratory effort: Positive: normal Respiratory: bilateral: diminished - Cardiovascular Rhythm: regular Extremities: abnormal - Gastrointestinal General gastrointestinal: Present: soft - Labs Lab Results: Laboratory Results - last 24 hr 02/10/17 02/10/17 02/10/17 12:21 17:24 21:34 WBC RBC Hgb Hct MCV MCH MCHC RDW Plt Count POC Glucose 115 H 96 125 H 02/11/17 09:12 WBC 7.8 RBC 2.64 L Hgb 8.4 L Hct 25.5 L MCV 97 MCH 32 MCHC 33 RDW 17.1 H Plt Count 197 POC Glucose
[2017-02-11 09:41] LABS: Anion Gap 10 mmol/L; BUN/Creatinine Ratio 17; Blood Urea Nitrogen 10 mg/dL (7-17); Calcium 7.9 mg/dL (8.4-10.2); Carbon Dioxide 32 mmol/L (22-30); Chloride 98.6 mmol/L (98-107); Glucose 75 mg/dL (65-100); Potassium 4.2 mmol/L (3.6-5.0); Sodium 136 mmol/L (137-145)
[2017-02-11] MEDS: ZYLOPRIM PO SCH (10:44)
[2017-02-11] MEDS: NEURONTIN PO SCH ×3 (10:44→21:27)
[2017-02-11] MEDS: MEGACE PO SCH ×2 (10:45→22:00)
[2017-02-11] MEDS: BABY ASPIRIN PO SCH (10:45)
[2017-02-11] MEDS: COLACE PO SCH ×2 (10:45→21:27)
[2017-02-11] MEDS: LOVENOX SUB-Q SCH (10:45)
[2017-02-11] MEDS ORDERED: POTASSIUM CHLORIDE FEEDTUBE ONE (11:56)
[2017-02-11] MEDS: D5NS 1,000 ML IV SCH (18:14)
[2017-02-12] MEDS: D5NS 1,000 ML IV SCH ×2 (04:21→14:30)
[2017-02-12] MEDS: NEURONTIN PO SCH ×4 (09:01→22:02)
--- NOTE | 2017-02-12 09:19 | Hem/Onc Progress Note ---
Assessment and Plan If tolerating by mouth, she can be discharged and I can follow up as outpatient. Patient on a regular diet which she seems to be preferring. At this point would not be too strict about her type of diet since she's not eating much anyway. Subjective Date of service: 02/12/17 Interval history: Patient feels better. Tolerating by mouth. Objective - Constitutional Vitals: Last Vital Signs Temp 99.3 F 02/12/17 08:37 Pulse 77 02/12/17 08:37 Resp 18 02/12/17 08:37 BP 112/54 02/12/17 08:37 Pulse Ox 95 02/12/17 08:37 Pain Intensity (0-10): denies any pain General appearance: no acute distress - Neck Neck: supple - Respiratory Respiratory effort: Positive: normal Respiratory: bilateral: CTA - Cardiovascular Rhythm: regular - Gastrointestinal General gastrointestinal: Present: soft - Labs Lab Results: Laboratory Results - last 24 hr 02/11/17 02/11/17 02/11/17 08:08 09:12 09:12 WBC RBC Hgb Hct MCV MCH MCHC RDW Plt Count Sodium 136 L Potassium 4.2 D Chloride 98.6 Carbon Dioxide 32 H Anion Gap 10 BUN 10 Creatinine 0.6 L Estimated GFR > 60 BUN/Creatinine Ratio 17 Glucose 75 POC Glucose 79 Calcium 7.9 L Magnesium 2.00 02/11/17 02/11/17 02/11/17 09:12 12:34 16:44 WBC 7.8 RBC 2.64 L Hgb 8.4 L Hct 25.5 L MCV 97 MCH 32 MCHC 33 RDW 17.1 H Plt Count 197 Sodium Potassium Chloride Carbon Dioxide Anion Gap BUN Creatinine Estimated GFR BUN/Creatinine Ratio Glucose POC Glucose 106 H 87 Calcium Magnesium 02/11/17 22:12 WBC RBC Hgb Hct MCV MCH MCHC RDW Plt Count Sodium Potassium Chloride Carbon Dioxide Anion Gap BUN Creatinine Estimated GFR BUN/Creatinine Ratio Glucose POC Glucose 111 H Calcium Magnesium
[2017-02-12] MEDS: ZYLOPRIM PO SCH (09:31)
[2017-02-12] MEDS: LOVENOX SUB-Q SCH ×2 (09:31→10:32)
[2017-02-12] MEDS: MEGACE PO SCH ×2 (09:31→22:03)
[2017-02-12] MEDS: BABY ASPIRIN PO SCH (09:32)
[2017-02-12] MEDS: COLACE PO SCH ×3 (09:32→22:03)
--- NOTE | 2017-02-12 12:19 | Discharge Summary ---
Providers - Providers Date of Admission: 02/09/17 00:37 Date of discharge: 02/12/17 Attending physician: EMILY JASMINE 02/09/17 03:36 Consult to Case Management [CONS] Routine Services Needed at Discharge: Other Notified:: mauro Additional Physician Instructions: Readmission. Failure to thrive Consult to Wound/ET Nurse [CONS] Routine Reason For Exam: wound eval 02/10/17 17:40 Consult to Physician [CONS] Routine Consulting Provider: TI BOTELLO Reason For Exam: NonHodgekins lymphoma Place consult to:: Dr. Botello Notified:: Ashly RN Phone number called:: Was contact made?: Yes If yes, spoke with:: Aminata-answering service Time called:: 18:32 02/11/17 08:31 Physical Therapy Evaluation and Treat [CONS] Routine Comment: Reason For Exam: skill level for discharge disposition 02/11/17 08:32 Occupational Therapy Evaluate and Treat [CONS] Routine Comment: Reason For Exam: skill level for discharge disposition 02/11/17 09:37 Consult to Dietitian/Nutrition [CONS] Routine Physician Instructions: Reason For Exam: Reason for Consult: Poor oral intake Primary care physician: [employer] Hospitalization Reason for admission: hypoglycemia/failure to thrive/near syncope Condition: Stable Hospital course: 17. Patient with significant history of lymphoma and hypertension congestive heart failure who is admitted through emergency room with altered of consciousness, hypoglycemia secondary to poor nutrition Admitted to hospital symptomatically managed, Evaluated by hematology oncologist , medications were optimized Patient requested PEG tube placement, however patient was extensively evaluated by GI in the past, unable to place PEG tube in view PAST history of extensive bariatric, gastric bypass, weight loss surgery. Patient was strongly encouraged to increase a little nutrition and nutrition supplements Symptoms significantly improved, On The day of discharge patient is comfortably no new complaints Vital signs stable, cleared by oncologist for discharge and follow-up in the office for further evaluation and management Patient is hemodynamically and clinically stable at the time of discharge Discharge diagnosis : --Failure to thrive: nutrition supplements, Megace, encourage oral nutrition Patient requests PEG placement, she was extensively evaluated by surgery during her previous admission Unable to place PEG , in view of bariatric surgery in the past . Encourage increased oral nutrition , no diet restriction , patient can take any food of her choice as tolerated --Hypokalemia; corrected --Hypoglycemia: Poor nutrition, proved --Non-Hodgkin's lymphoma-on chemotherapy, follow-up hematology oncologist --Anemia; closely monitor, transfuse as needed --Diastolic CHF, stable --Hypotension; improved ,hold antihypertensive medications, check with PMD and resume as needed Disposition: DC/[place] Time spent for discharge: 32 min Core Measure Documentation - Palliative Care Palliative Care/ Comfort Measures: Not Applicable - Core Measures Any of the following diagnoses?: none Exam - Constitutional Vitals: Temp Pulse Resp BP Pulse Ox 99.3 F 74 18 112/54 95 02/12/17 08:37 02/12/17 09:53 02/12/17 08:37 02/12/17 08:37 02/12/17 09:53 General appearance: Present: no acute distress, well-nourished - EENT Eyes: Present: PERRL, EOM intact - Neck Neck: Present: supple, normal ROM - Respiratory Respiratory effort: normal Respiratory: bilateral: diminished, negative: rales, rhonchi, wheezing - Cardiovascular Rhythm: regular Heart Sounds: Present: S1 & S2 - Extremities Extremities: no ischemia, No edema Peripheral Pulses: within normal limits - Abdominal General gastrointestinal: Present: soft, non-tender, non-distended, normal bowel sounds - Integumentary Integumentary: Present: clear, warm - Musculoskeletal Musculoskeletal: strength equal bilaterally - Psychiatric Psychiatric: appropriate mood/affect, cooperative - Neurologic Neurologic: CNII-XII intact, moves all extremities Plan Activity: advance as tolerated Special Instructions: physical therapy, occupational therapy Follow up with: TAYE ECKERT MD [Primary Care Provider] - 3-5 Days TI BOTELLO MD [Staff Physician] - 7 Days
--- NOTE | 2017-02-12 17:19 | Progress Note ---
Assessment and Plan Assessment and plan: --Failure to thrive: nutrition supplements, Megace, encourage oral nutrition Patient requests PEG placement, she was extensively evaluated by surgery during her previous admission Unable to place PEG , in view of bariatric surgery in the past . Encourage increased oral nutrition , no diet restriction , patient can take any outside food of her choice . --Hypokalemia; oral potassium chloride, monitor levels --Hypoglycemia: Poor nutrition, proved --Non-Hodgkin's lymphoma-on chemotherapy,d/w hematology oncologist --Anemia; closely monitor, transfuse as needed --Diastolic CHF, stable --Hypotension; hold antihypertensive medications, IV fluids --DVT prophylaxis; SCD History Interval history: Patient seen and evaluated medical records reviewed Patient has a little bit of food last night, feels better No other complaints Family requested SNF placement, case management specialist processing the paperwork Denies nausea vomiting or abdominal Hospitalist Physical - Constitutional Vitals: Temp Pulse Resp BP Pulse Ox 98.3 F 68 18 109/52 98 02/12/17 17:05 02/12/17 17:05 02/12/17 17:05 02/12/17 17:05 02/12/17 17:05 General appearance: Present: no acute distress, well-nourished - EENT Eyes: Present: PERRL, EOM intact - Neck Neck: Present: supple, normal ROM - Respiratory Respiratory effort: normal Respiratory: bilateral: diminished, negative: rales, rhonchi, wheezing - Cardiovascular Rhythm: regular Heart Sounds: Present: S1 & S2 - Extremities Extremities: no ischemia, normal temperature Peripheral Pulses: within normal limits - Abdominal General gastrointestinal: soft, non-tender, non-distended, normal bowel sounds - Integumentary Integumentary: Present: clear, warm - Psychiatric Psychiatric: appropriate mood/affect, cooperative - Neurologic Neurologic: CNII-XII intact, moves all extremities Results - Labs CBC & Chem 7: 02/11/17 09:12 02/11/17 09:12 Labs: Laboratory Last Values WBC 7.8 K/mm3 (4.5-11.0) 02/11/17 09:12 RBC 2.64 M/mm3 (3.65-5.03) L 02/11/17 09:12 Hgb 8.4 gm/dl (10.1-14.3) L 02/11/17 09:12 Hct 25.5 % (30.3-42.9) L 02/11/17 09:12 MCV 97 fl (79-97) 02/11/17 09:12 MCH 32 pg (28-32) 02/11/17 09:12 MCHC 33 % (30-34) 02/11/17 09:12 RDW 17.1 % (13.2-15.2) H 02/11/17 09:12 Plt Count 197 K/mm3 (140-440) 02/11/17 09:12 Lymph % (Auto) 24.3 % (13.4-35.0) 02/10/17 05:16 [place] % (Auto) 11.1 % (0.0-7.3) H 02/10/17 05:16 Eos % (Auto) 0.6 % (0.0-4.3) 02/10/17 05:16 Baso % (Auto) 0.7 % (0.0-1.8) 02/10/17 05:16 Lymph # 1.6 K/mm3 (1.2-5.4) 02/10/17 05:16 [place] # 0.7 K/mm3 (0.0-0.8) 02/10/17 05:16 Eos # 0.0 K/mm3 (0.0-0.4) 02/10/17 05:16 Baso # 0.0 K/mm3 (0.0-0.1) 02/10/17 05:16 Seg Neutrophils % 63.3 % (40.0-70.0) 02/10/17 05:16 Seg Neutrophils # 4.3 K/mm3 (1.8-7.7) 02/10/17 05:16 Sodium 136 mmol/L (137-145) L 02/11/17 09:12 Potassium 4.2 mmol/L (3.6-5.0) D 02/11/17 09:12 Chloride 98.6 mmol/L (98-107) 02/11/17 09:12 Carbon Dioxide 32 mmol/L (22-30) H 02/11/17 09:12 Anion Gap 10 mmol/L 02/11/17 09:12 BUN 10 mg/dL (7-17) 02/11/17 09:12 Creatinine 0.6 mg/dL (0.7-1.2) L 02/11/17 09:12 Estimated GFR > 60 ml/min 02/11/17 09:12 BUN/Creatinine Ratio 17 % 02/11/17 09:12 Glucose 75 mg/dL (65-100) 02/11/17 09:12 POC Glucose 111 (70-105) H 02/11/17 22:12 Calcium 7.9 mg/dL (8.4-10.2) L 02/11/17 09:12 Magnesium 2.00 mg/dL (1.7-2.3) 02/11/17 09:12 Total Creatine Kinase 27 units/L (30-135) L 02/09/17 06:20 CK-MB (CK-2) 1.6 ng/mL (0.0-4.0) 02/09/17 06:20 CK-MB (CK-2) Rel Index 5.9 (0-4) H 02/09/17 06:20 Troponin T 0.089 ng/mL (0.00-0.029) H 02/09/17 06:20 NT-Pro-B Natriuret Pep 696.3 pg/mL (0-900) 02/09/17 00:11 Triglycerides 81 mg/dL (2-149) 02/09/17 03:09 Cholesterol 96 mg/dL (50-199) 02/09/17 03:09 LDL Cholesterol Direct 65 mg/dL (50-130) 02/09/17 03:09 HDL Cholesterol 15 mg/dL (40-59) L 02/09/17 03:09 Cholesterol/HDL Ratio 6.40 % 02/09/17 03:09 Urine Color Yellow (Yellow) 02/08/17 20:42 Urine Turbidity Clear (Clear) 02/08/17 20:42 Urine pH 5.0 (5.0-7.0) 02/08/17 20:42 Ur Specific [place] 1.011 (1.003-1.030) 02/08/17 20:42 Urine Protein <15 mg/dl mg/dL (Negative) 02/08/17 20:42 Urine Glucose (UA) Neg mg/dL (Negative) 02/08/17 20:42 Urine Ketones Tr mg/dL (Negative) 02/08/17 20:42 Urine Blood Neg (Negative) 02/08/17 20:42 Urine Nitrite Neg (Negative) 02/08/17 20:42 Urine Bilirubin Neg (Negative) 02/08/17 20:42 Urine Urobilinogen 4.0 mg/dL (<2.0) 02/08/17 20:42 Ur Leukocyte Esterase Neg (Negative) 02/08/17 20:42 Urine WBC (Auto) 2.0 /HPF (0.0-6.0) 02/08/17 20:42 Urine RBC (Auto) < 1.0 /HPF (0.0-6.0) 02/08/17 20:42 U Epithel Cells (Auto) 1.0 /HPF (0-13.0) 02/08/17 20:42 Urine Mucus Few /HPF 02/08/17 20:42
[2017-02-13] MEDS: D5NS 1,000 ML IV SCH (02:13)
[2017-02-13] MEDS: NEURONTIN PO SCH (09:42)
[2017-02-13] MEDS: ZYLOPRIM PO SCH (09:42)
[2017-02-13] MEDS: LOVENOX SUB-Q SCH (09:42)
[2017-02-13] MEDS: BABY ASPIRIN PO SCH (09:42)
[2017-02-13] MEDS: MEGACE PO SCH (09:42)
[2017-02-13] MEDS: COLACE PO SCH (09:43)
[2017-02-13 12:22] VITALS: BP 99/43
[2017-02-13] MEDS ORDERED: FLUSH HEPARIN IV ONE (13:30)
== END 2017-02-13 14:28 | DRG 641 ==
LOC: ED 19:04 → 4A 02-09 00:37
PROVIDERS: ADMIT Internal Medicine; ATTEND Internal Medicine
DX: E87.6 Hypokalemia (principal); C85.90 Non-Hodgkin lymphoma, unspecified, unspecified site; I50.30 Unspecified diastolic (congestive) heart failure; R62.7 Adult failure to thrive; E16.2 Hypoglycemia, unspecified; I11.0 Hypertensive heart disease with heart failure; F17.210 Nicotine dependence, cigarettes, uncomplicated; I95.9 Hypotension, unspecified; L89.90 Pressure ulcer of unspecified site, unspecified stage; D64.9 Anemia, unspecified; Z79.899 Other long term (current) drug therapy; Z82.49 Family history of ischemic heart disease and other diseases of the circulatory system; Z79.82 Long term (current) use of aspirin
CPT/HCPCS: 36415; 71010; 80048; 80061; 81001; 82550; 82553; 82962; 83735; 83880; 84484; 85025; 85027; 93005; 93010; 96374; A9270-GY; G8978-GP; G8979-GP; J1642; J1650; J2405; J7042